=== PATIENT | female | born 1935 | race African-American/Black ===

== ENCOUNTER 2020-02-15 03:53 | Inpatient (IN) | payer OTHER ==
--- NOTE | 2020-02-15 04:30 | PDOC ---
History of Present Illness - General Chief Complaint: Shortness of Breath Stated Complaint: SOB Time Seen by Provider: 02/15/20 04:30 - History of Present Illness Initial Comments: 02/15/20 04:30 HPI: ROS: GENERAL/CONSTITUTIONAL: No fever/chills, diaphoresis, or weakness. HEENT: No change in vision. No ear pain. No sore throat. CARDIOVASCULAR: No chest pain, palpitations or peripheral edema RESPIRATORY: No shortness of breath, dyspnea with exertion, cough, wheezing, or hemoptysis. GASTROINTESTINAL: No abdominal pain, nausea, vomiting, diarrhea or constipation. GENITOURINARY: No dysuria, frequency, or change in urination. MUSCULOSKELETAL: No joint or muscle swelling or pain. SKIN: No rash or hives NEUROLOGIC: No headache, vertigo, focal weakness, loss of consciousness, or change in strength/sensation. ENDOCRINE: No increased thirst. No unexplained weight loss. HEMATOLOGIC/LYMPHATIC: No anemia, easy bleeding, or history of blood clots. PMH: Denied PSx: Denied Social Hx: Denied etoh, tobacco, drug use Meds: See nurse note Allergies: See nurse note PE: GENERAL: Awake, alert, and fully oriented, in no acute distress. Patient is appropriately conversational. HEENT: Normocephalic, atraumatic. PERRLA, EOMI. No conjunctival pallor. Moist mucous membranes. NECK: Normal ROM and supple. No lymphadenopathy, JVD, or masses. CARDIOVASCULAR: Regular rate and rhythm, normal S1 and S2, no murmurs, rubs or gallops PULMONARY: No respiratory distress. Breath sounds equal, clear to auscultation bilaterally. No wheezes, rales or rhonchi. ABDOMEN: Soft, nontender, normoactive bowel sounds. No guarding, no rebound. No masses EXTREMITIES: Normal range of motion, no edema or erythema, no calf tenderness. No clubbing or cyanosis. NEUROLOGICAL: Cranial nerves II through XII grossly intact. Normal speech, normal gait SKIN: Warm, Dry, normal turgor, no rashes or lesions noted. Normal capillary refill. PSYCHIATRIC: Appropriate affect. Cooperative MDM: Past History - Medical History Allergies/Adverse Reactions: Allergies Allergy/AdvReac Type Severity Reaction Status Date / Time No Known Allergies Allergy Verified 02/15/20 04:18 Cardiac Disorders: Yes (A-fib) COPD: No Diabetes: Yes HTN: Yes Other medical history: Hemiplegia s/p stroke (Left weakness) - Psycho-Social/Smoking History Smoking History: Never smoked Have you smoked in the past 12 months: No Information on smoking cessation initiated: No - Substance Abuse Hx (Audit-C & DAST Scrn) How often the patient has a drink containing alcohol: Never Score: In Men: 4 or > Positive; In Women: 3 or > Positive: 0 Screen Result (Pos requires Nsg. Audit-10AR): Negative In the last yr the pt used illegal drug/Rx for NonMed reason: No Score: Yes response is considered Positive: 0 Screen Result (Positive result requires Nsg. DAST-10): Negative *Physical Exam - Vital Signs Last Vital Signs Temp Pulse Resp BP Pulse Ox 98.1 F 99 H 20 139/121 H 99 02/15/20 04:18 02/15/20 04:18 02/15/20 04:18 02/15/20 04:18 02/15/20 04:18
--- NOTE | 2020-02-15 05:45 | PDOC ---
History of Present Illness - General Chief Complaint: Shortness of Breath Stated Complaint: SOB Time Seen by Provider: 02/15/20 04:30 History Source: Patient Exam Limitations: No Limitations - History of Present Illness Initial Comments: 02/15/20 04:41 85 yo female pmh CVA with residual left sided weakness, DM, HTN, Afib (on ASA, no AC), presents to the ED from [facility] after being found hypoxic to 87 and having an elevated RR and laboured breathing. Pt unable to provide history, poor historian, AOX2. 1st visit to this hospital. Pt has no specific complaints at this time. Denies CP, SOB, abdominal pain, F/C/N/V. Pt noted to be tachypnic with O2 in the low 90s, placed on NC 3L by EMS Past History - Medical History Allergies/Adverse Reactions: Allergies Allergy/AdvReac Type Severity Reaction Status Date / Time No Known Allergies Allergy Verified 02/15/20 04:18 Home Medications: Ambulatory Orders Aspirin [Justin Chewable] 81 mg PEG DAILY 02/15/20 Atorvastatin Ca [Lipitor] 40 mg PEG HS 02/15/20 Diltiazem [Cardizem -] 60 mg PEG QID 02/15/20 Diphenhydramine [Benadryl Oral Solution -] 25 mg PEG Q6H 02/15/20 Insulin Glargine,Hum.rec.anlog [Basaglar Kwikpen U-100] 10 unit SQ HS 02/15/20 Insulin Lispro [Admelog Solostar] 3 unit SQ AM 02/15/20 Multivitamin [Multiple Vitamins] 1 each PEG DAILY 02/15/20 Saliva Substitute Comb. No.12 [Oral Relief Dry Mouth] 30 ml MM Q6H PRN 02/15/20 Cardiac Disorders: Yes (A-fib) COPD: No Diabetes: Yes HTN: Yes Other medical history: Hemiplegia s/p stroke (Left weakness) - Psycho-Social/Smoking History Smoking History: Never smoked Have you smoked in the past 12 months: No Information on smoking cessation initiated: No - Substance Abuse Hx (Audit-C & DAST Scrn) How often the patient has a drink containing alcohol: Never Score: In Men: 4 or > Positive; In Women: 3 or > Positive: 0 Screen Result (Pos requires Nsg. Audit-10AR): Negative In the last yr the pt used illegal drug/Rx for NonMed reason: No Score: Yes response is considered Positive: 0 Screen Result (Positive result requires Nsg. DAST-10): Negative Review of Systems - Review of Systems Constitutional: Yes: See HPI HEENTM: Yes: See HPI Respiratory: Yes: See HPI Cardiac (ROS): Yes: See HPI ABD/GI: Yes: See HPI : Yes: See HPI Musculoskeletal: Yes: See HPI Integumentary: Yes: See HPI *Physical Exam - Vital Signs Last Vital Signs Temp Pulse Resp BP Pulse Ox 98.1 F 99 H 20 139/121 H 99 02/15/20 04:18 02/15/20 04:18 02/15/20 04:18 02/15/20 04:18 02/15/20 04:18 - Physical Exam General Appearance: Yes: Nourished, Appropriately Dressed, Apparent Distress HEENT: positive: EOMI, YUVAL Neck: positive: Supple Respiratory/Chest: positive: Lungs Clear, Normal Breath Sounds, Rapid RR. negative: Respiratory Distress, Accessory Muscle Use, Crackles, Rales, Rhonchi, Stridor, Wheezing Cardiovascular: positive: Regular Rhythm, S1, S2, Tachycardia. negative: Edema, JVD, Murmur Vascular Pulses: Dorsalis-Pedis (R): 4+, Doralis-Pedis (L): 4+ Gastrointestinal/Abdominal: positive: Flat, Soft. negative: Pulsatile Mass, Protuberent, Distended, Guarding, Rebound, Tenderness Musculoskeletal: negative: CVA Tenderness Extremity: positive: Normal Capillary Refill, Normal Inspection, Normal Range of Motion Integumentary: positive: Normal Color, Dry, Warm Neurologic: positive: Alert, Normal Mood/Affect, Normal Response, Motor Strength 5/5. negative: Fully Oriented ED Treatment Course - LABORATORY CBC & Chemistry Diagram: 02/15/20 05:00 02/15/20 05:34 - RADIOLOGY Radiology Studies Ordered: Category Date Time Status CHEST X-RAY PORTABLE* [RAD] Stat Radiology 02/15/20 04:36 Ordered Medical Decision Making - Medical Decision Making 02/15/20 06:41 85 yo female pmh CVA with residual left sided weakness, DM, HTN, Afib (on ASA, no AC), presents to the ED from [facility] after being found hypoxic to 87 and having an elevated RR and laboured breathing. Pt unable to provide history, poor historian, AOX2. 1st visit to this hospital. Pt has no specific complaints at this time. Denies CP, SOB, abdominal pain, F/C/N/V. Pt noted to be tachypnic with O2 in the low 90s, placed on NC 3L by EMS Vitals show elevated HR, Afib on EKG, 97% on 02 Concern for sepsis vs PE Pending labs, CXR UA, CTA and admission for laboured breathing and newly requiring 02 Donald Urrutia contact number [phone] 02/15/20 07:07 S/O to day team Discharge - Discharge Information Problems reviewed: Yes Clinical Impression/Diagnosis: Hypoxic - Follow up/Referral Referrals: ON STAFF,NOT [Primary Care Provider] - - Patient Discharge Instructions - Post Discharge Activity
[2020-02-15 05:47] LABS: BASO % 0.4 % (0-2.0); EOS % 1.7 % (0-4.5); HEMOGLOBIN 11.2 GM/dL (10.7-15.3); LYMPH % 16.4 % (8-40); MCH 30.9 pg (25.7-33.7); MEAN CELL VOLUME 96.8 fl (80-96); MEAN PLT VOLUME 9.5 fl (7.5-11.1); MONO % 8.8 % (3.8-10.2); NEUT % 72.7 % (42.8-82.8); PLATELET COUNT 269 K/MM3 (134-434); RBC 3.62 M/mm3 (3.60-5.2); RDW 16.4 % (11.6-15.6); WHITE BLOOD COUNT 14.5 K/mm3 (4.0-10.0)
[2020-02-15 05:51] LABS: INR 1.13 (0.83-1.09); PROTHROMBIN TIME (PATIENT) 13.6 SEC (9.7-13.0)
[2020-02-15 05:54] LABS: ACTIVATED PTT 26.5 SECONDS (25.2-36.5)
--- NOTE | 2020-02-15 05:56 | PDOC ---
Attending Attestation - Resident Resident Name: Hank Guallpa - ED Attending Attestation I have performed the following: I have examined & evaluated the patient, The case was reviewed & discussed with the resident, I agree w/resident's findings & plan, Exceptions are as noted - HPI HPI: 02/21/20 20:21 See resident HPI - Physicial Exam PE: 02/21/20 20:21 Agree with documented exam - Medical Decision Making 02/21/20 20:21 85F DM, HTN, AFib on ASA, CVA L residual weakness from NH found acutely hypoxic to 87% on RA, tachypneic, increased wob given presentation, PE is of primary concern, consider infection, arrythmia, fluid derangement f/u labs, cxr, ekg, cta pe final dispo per clinical course, but will need admission Discharge - Discharge Information Problems reviewed: Yes Clinical Impression/Diagnosis: Hypoxic, New onset of congestive heart failure Pulmonary embolus Qualifiers: Pulmonary embolism type: single subsegmental (without acute cor pulmonale) Qualified Code(s): I26.93 - Single subsegmental pulmonary embolism without acute cor pulmonale Condition: Stable - Follow up/Referral - Patient Discharge Instructions - Post Discharge Activity
[2020-02-15 06:10] LABS: POTASSIUM 3.9 mmol/L (3.5-5.1)
[2020-02-15 06:11] LABS: CALCIUM 9.2 mg/dL (8.5-10.1)
[2020-02-15 06:13] LABS: BLOOD UREA NITROGEN 31.4 mg/dL (7-18)
[2020-02-15 06:16] LABS: CREATININE 1.1 mg/dL (0.55-1.3)
[2020-02-15 06:18] LABS: BILIRUBIN,TOTAL 0.5 mg/dL (0.2-1); TOT PROT 6.6 g/dl (6.4-8.2)
--- NOTE | 2020-02-15 07:38 | PDOC ---
*Physical Exam - Vital Signs Last Vital Signs Temp Pulse Resp BP Pulse Ox 98.8 F 99 H 18 127/86 99 02/15/20 06:00 02/15/20 06:00 02/15/20 06:00 02/15/20 06:00 02/15/20 07:30 ED Treatment Course - LABORATORY CBC & Chemistry Diagram: 02/15/20 05:00 02/15/20 05:34 - ADDITIONAL ORDERS Additional order review: Laboratory Results 02/15/20 02/15/20 02/15/20 05:34 05:00 05:00 PT with INR INR PTT (Actin FS) Sodium 140 Potassium 3.9 Chloride 102 Carbon Dioxide 29 Anion Gap 10 BUN 31.4 H Creatinine 1.1 Est GFR (CKD-EPI)AfAm 53.39 Est GFR (CKD-EPI)NonAf 46.07 Random Glucose 143 H Lactic Acid 1.9 Calcium 9.2 Total Bilirubin 0.5 AST 34 ALT 47 Alkaline Phosphatase 283 H Troponin I 0.06 H Total Protein 6.6 Albumin 3.0 L 02/15/20 05:00 PT with INR 13.60 H INR 1.13 H PTT (Actin FS) 26.5 Sodium Potassium Chloride Carbon Dioxide Anion Gap BUN Creatinine Est GFR (CKD-EPI)AfAm Est GFR (CKD-EPI)NonAf Random Glucose Lactic Acid Calcium Total Bilirubin AST ALT Alkaline Phosphatase Troponin I Total Protein Albumin 02/15/20 05:00 RBC 3.62 MCV 96.8 H MCHC 32.0 RDW 16.4 H MPV 9.5 Neutrophils % 72.7 Lymphocytes % 16.4 Monocytes % 8.8 Eosinophils % 1.7 Basophils % 0.4 Medical Decision Making - Medical Decision Making 02/15/20 07:[address] Guallpa. Plan to follow up CTA to rule out P, admit. EKG atrial fibrillation at 99 bpm, QTc 426. Trop noted to be 0.06. 02/15/20 07:39 CXR with bilateral pleural effusions with congestive changes, possible basilar atelectasis or infiltrates with the left more affected than the right. There is a large heart, sclerotic knob, sternal sutures and clips, scoliosis and degenerative spine and shoulder changes. 02/15/20 08:12 pro-BNP >14,000, consistent with new onset CHF. Will f/u chest CTA. 02/15/20 09:34 Chest CTA: Filling defect within the right lower lobe segmental pulmonary artery that appears to be caused by a pulmonary embolus. Will admit for PE, new onset CHF. 02/15/20 14:34 Called to bedside due to concern for increasing altered mental status, left sided facial droop. Patient was previously AAOX2 and answered questions appropriately, now saying words without relevance. CT stroke ordered, will get NIHSS after patient returns. 02/15/20 15:[address] being read, but radiologist notes concern for acute hemorrhagic stroke vs subarachnoid. Heparin stopped. Dr. Jack aware. 02/15/20 15:26 CT (stroke): Early or intravenous contrast administration is limiting this exam. There is suggestion of a superimposed acute/subacute right middle cerebral artery infarct with edema and efface of the cortical sulci. Cortical versus sulcal increased attenuation along the lateral margin of the right frontal, temporal, and parietal lobe. Although this may be due to cortical reperfusion and late enhancement from the earlier administered intravenous contrast, significant subarachnoid hemorrhage should definitely be considered. Correlated clinically. Neurosurgery consult is recommended. A short term follow-up CT of the head in 6 to 12 hours or an MRI of the brain is needed for further evaluation. 02/15/20 15:[address] Abdi from neurology, who also expresses concern for brain bleed, recommends discussion with neurosurgery. Discussed with Dr. Murphy from neurosurgery, who says there is no surgical intervention to be performed, manage medically. Dr. Jack is at bedside, plan to admit patient to the ICU. Discharge - Discharge Information Problems reviewed: Yes Clinical Impression/Diagnosis: Hypoxic, New onset of congestive heart failure Pulmonary embolus Qualifiers: Pulmonary embolism type: single subsegmental (without acute cor pulmonale) Qualified Code(s): I26.93 - Single subsegmental pulmonary embolism without acute cor pulmonale Condition: Guarded - Admission Yes - Follow up/Referral - Patient Discharge Instructions - Post Discharge Activity NIH Stroke Scale - Last Known Well Date/Time & Onset Date Last Known Well: 02/15/20 Time Last Known Well: 14:30 - Initial Evaluation Level of consciousness: Not alert, but arousable with minimal stimulation Ask patient the month and their age: Answers one correctly Ask patient to open & close eyes; make fist and let go: Obeys both correctly Best gaze (horizontal eye movement): Partial gaze palsy Visual field testing: No visual field loss Facial paresis (Show teeth/raise eyebrows/close eyes tight): Minor paralysis (flattened nasolabial fold, asymmetry on smiling) Motor Function: Left Arm: No movement Motor Function: Right Arm: Normal (extends arm 90 (or 45) degrees for 10 seconds without drift Motor Function: Left Leg: No movement Motor Function: Right Leg: Normal (extends leg 30 degrees for 5 seconds without drift) Limb Ataxia: Untestable (Joint fused or limb amputated), explain: (Not moving left side. R side without ataxia) Sensory(Use pinprick test arms,legs,trunk,face/side to side): Severe to total sensory loss (L sided) Best language (Describe picture, name items, read sentences): Mild to moderate aphasia Dysarthria (read several words): Normal articulation Extinction and Inattention: Profound dawson-inattention or extinction to more than one modality (L sided dawson-neglect) - Total Score NIH Stroke Scale Score: 17
[2020-02-15 08:04] LABS: N-TERMINAL BNP 14356.1 pg/ml (5-450)
[2020-02-15 08:11] LABS: URINE APPEARANCE CLEAR; URINE BILIRUBIN NEGATIVE (NEGATIVE); URINE COLOR YELLOW; URINE GLUCOSE (UA) NEGATIVE (NEGATIVE); URINE KETONE NEGATIVE (NEGATIVE); URINE LEUK ESTERASE NEGATIVE (NEGATIVE); URINE NITRITE NEGATIVE (NEGATIVE); URINE PROTEIN NEGATIVE (NEGATIVE); URINE UROBILINOGEN 0.2 mg/dL (0.2-1.0)
[2020-02-15] MEDS ORDERED: FUROSEMIDE 40 MG/4 ML INJECTABLE VIAL IVPUSH ONE (08:12)
[2020-02-15] MEDS ORDERED: HEPARIN NA (PORCINE) 5,000 UNITS/ML 1ML VIAL IVPUSH ONE (09:37)
[2020-02-15] MEDS ORDERED: HEPARIN NA (PORCINE) 5,000 UNITS/ML 1ML VIAL IVPUSH PRN ×2 (09:38)
[2020-02-15] MEDS ORDERED: HEPARIN NA (PORCINE) 5,000 UNITS/ML 1ML VIAL ONE ×2 (09:42→11:31)
[2020-02-15] MEDS ORDERED: FUROSEMIDE 40 MG/4 ML INJECTABLE VIAL ONE (09:43)
[2020-02-15] MEDS ORDERED: HEPARIN INFUSION - 25,000 UNITS/500 ML INFUS.BAG IVPB ONE (09:43)
[2020-02-15] MEDS ORDERED: HEPARIN - 25,000 UNIT in SODIUM CHLORIDE 495 ML IV SCH (09:45)
--- NOTE | 2020-02-15 11:36 | CON.CARD ---
Consult Consult Specialty:: Cardiology Referred by:: Dr. Jack Reason for Consultation:: CHF - History of Present Illness Chief Complaint: sob History of Present Illness: 85 year old woman with pmh HTN, DM, Afib only on ASA not AC unknown indication, h/o CVA with residual L sided weakness adm from [place] sob, hypoxic. pt found to have a pulmonary embolism on CTA chest as well as b/l pleural effusions. pt seen and examined today in [facility]. pt unable to provide a clear history. denies any current complaints. states she needs to go to the bathroom. denies any current sob. no chest pain, palpitations, pnd, orthopnea, or le edema. 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 Cardio/Vascular: Yes: AFIB, HTN Endocrine: Yes: Diabetes Mellitus - Smoking History Smoking history: Never smoked Have you smoked in the past 12 months: No - Social History Usual Living Arrangement: Retirement History of Recent Travel: No Home Medications - Allergies Allergies/Adverse Reactions: Allergies Allergy/AdvReac Type Severity Reaction Status Date / Time No Known Allergies Allergy Verified 02/15/20 04:18 - Home Medications Home Medications: Ambulatory Orders Acetaminophen [Tylenol -] 1,000 mg PEG TID PRN 02/15/20 Aspirin [Justin Chewable] 81 mg PEG DAILY 02/15/20 Atorvastatin Ca [Lipitor] 40 mg PEG HS 02/15/20 Diltiazem [Cardizem -] 60 mg PEG QID 02/15/20 Diphenhydramine [Benadryl Oral Solution -] 25 mg PEG Q6H 02/15/20 Furosemide 40 mg PEG BID PRN 02/15/20 Gabapentin 100 mg PEG HS 02/15/20 Insulin Glargine,Hum.rec.anlog [Basaglar Kwikpen U-100] 10 unit SQ HS 02/15/20 Insulin Lispro [Admelog Solostar] 3 unit SQ AM 02/15/20 Ipratropium 0.02% Nebulizer [Atrovent] 1 neb NEB Q6H PRN 02/15/20 Latanoprost 0.005% Eye Drops [Xalatan 0.005% Eye Drops -] 1 drop OU HS 02/15/20 Lisinopril 10 mg PEG DAILY 02/15/20 Meclizine HCl 12.5 mg PEG BID PRN 02/15/20 Metoprolol Tartrate 100 mg PEG BID 02/15/20 Multivitamin [Multiple Vitamins] 1 each PEG DAILY 02/15/20 Polyethylene Glycol 3350 [Glycolax] 17 gm PEG BID PRN 02/15/20 Saliva Substitute Comb. No.12 [Oral Relief Dry Mouth] 30 ml MM Q6H PRN 02/15/20 Sennosides 8.6 mg PEG HS PRN 02/15/20 predniSONE [Deltasone -] 40 mg PEG DAILY PRN 02/15/20 Family Medical History Family History: Denies Review of Systems - Review of Systems Constitutional: denies: No Symptoms, Chills, Diaphoresis, Fever, Lethargy, Loss of Appetite, Malaise, Night Sweats, Unintentional Wgt. Loss, Weakness, Other Eyes: denies: No Symptoms, Blind Spots, Blurred Vision, Double Vision, Eye Pain, Floaters, Photophobia, Recent Change in Vision, Other HENT: denies: No Symptoms, Difficult Swallowing, Ear Discharge, Ear Pain, Epistaxis, Gingival Bleeding, Hearing Loss, Mouth Swelling, Nasal Congestion, Ocular Prosthesis, Throat Pain, Toothache, Ringing in Ears, Other Neck: denies: No Symptoms, Decreased ROM, Lumps, Pain on Movement, Stiffness, Swollen Glands, Tenderness, Other Cardiovascular: reports: Shortness of Breath. denies: No Symptoms, Chest Pain, Edema, Palpitations, Other Respiratory: reports: SOB. denies: No Symptoms, Cough, Exercise Intolerance, He moptysis, Orthopnea, PND, Snoring, SOB on Exertion, Wheezing, Other Gastrointestinal: denies: No Symptoms, Abdominal Pain, Bloating, Constipation, Diarrhea, Dysphagia, Indigestion, Melena, Nausea, Rectal Bleeding, Vomiting, Vomiting Blood, Other Genitourinary: denies: No Symptoms, Burning, Discharge, Dysuria, Flank Pain, Frequency, Hematuria, Incontinence, Lesions, Menses, Pain, Testicular Mass, Testicular Pain, Testicular Swelling, Urgency, Vaginal Bleeding, Other Breasts: denies: No Symptoms Reported, See HPI, Breast Implants, Discharge from Nipple, Lumps, Pain, Skin Changes, Other Musculoskeletal: denies: No Symptoms, Back Pain, Crepitus, Decreased ROM, Extremity Pain, Joint Pain, Joint Swelling, Muscle Pain, Muscle Cramps, Muscle Weakness, Other Integumentary: denies: No Symptoms, Blister, Bruising, Change in Color, Eczema, Erythema, Incision, Lesions, Lump, Pallor, Pruritis, Rash, Wound, Other Neurological: reports: Pre-Existing Deficit. denies: No Symptoms, Change in LOC, Change in Speech, Confusion, Dizziness, Headache, Incoordination, Numbness, Parasthesia, Seizure, Syncope, Tremors, Unsteady Gait, Weakness, Other Endocrine: denies: No Symptoms, Excessive Sweating, Flushing, Increased Hunger, Increased Thirst, Intolerance to Cold, Intolerance to Heat, Unexplained Weight Gain, Unexplained Weight Loss, Other Hematology/Lymphatic: denies: No Symptoms, Easily Bruised, Excessive Bleeding, Swollen Glands, Other Psychiatric: denies: No Symptoms, Altered Sleep Pattern, Anxiety, Depression, Hallucinations, Panic, Paranoia, Suicidal, Other - Risk Factors Known Risk Factors: Yes: Diabetes Mellitus, Hypercholesterolemia, Hypertension, Physical Inactivity, Prior ME /Emb Stroke Vital Signs: Vital Signs Temperature 98.2 F 02/15/20 10:13 Pulse Rate 109 H 02/15/20 10:13 Respiratory Rate 19 02/15/20 10:13 Blood Pressure 124/81 02/15/20 10:13 O2 Sat by Pulse Oximetry (%) 99 02/15/20 10:13 Constitutional: Yes: No Distress, Calm Eyes: Yes: Conjunctiva Clear, EOM Intact HENT: Yes: Atraumatic, Normocephalic Neck: Yes: Supple, Trachea Midline Respiratory: Yes: Regular, Diminished. No: Rales, Rhonchi, SOB, Wheezes Gastrointestinal: Yes: Normal Bowel Sounds, Soft. No: Distention, Tenderness Cardiovascular: Yes: Pulse Irregular. No: Regular Rate and Rhythm, Bradycardia, Tachycardia, Gallop, Rub, Varicosities JVD: No Carotid Bruit: No PMI: Non-Displaced Heart Sounds: Yes: S1, S2. No: Split S2, S3, S4, Clicks, Gallop, Rub, Bruit Murmur: No: Systolic Murmur, Diastolic Murmur Edema: No Peripheral Pulses WNL: Yes Peripheral Pulses: 2+ Left Doralis Pedis, 2+ Right Dorsalis Pedis Neurological: Yes: Alert, Oriented Psychiatric: Yes: Alert, Oriented - Other Data Labs, Other Data: CBC, BMP 02/15/20 05:00 02/15/20 05:34 INR, PTT INR 1.13 (0.83-1.09) H 02/15/20 05:00 Troponin, BNP 02/15/20 02/15/20 05:00 05:34 Troponin I 0.06 H B-Natriuretic Peptide 43718.1 H Troponin, BNP 02/15/20 02/15/20 05:00 05:34 Troponin I 0.06 H B-Natriuretic Peptide 45294.1 H Afib Imaging - Results Chest X-ray: Report Reviewed, Image Reviewed EKG: Report Reviewed, Image Reviewed Other: Report Reviewed, Image Reviewed Assessment/Plan 85 year old woman with pmh HTN, DM, Afib only on ASA not AC unknown indication, h/o CVA with residual L sided weakness adm from [place] sob, hypoxic. pt found to have a pulmonary embolism on CTA chest as well as b/l pleural effusions. pt seen and examined today in [facility]. pt unable to provide a clear history. denies any current complaints. states she needs to go to the bathroom. denies any current sob. no chest pain, palpitations, pnd, orthopnea, or le edema. SOB -no evidence of CHF or ACS -Pulmonary embolism seen on CTA chest -b/l pleural effusions -elevated BNP and minimally elevated troponin on labs can be secondary to PE as well as to chronic Afib -pt reported to have not been on AC for AFib as outpatient, should be clarified as she will be on AC for pulmonary embolism -can check echo to evaluate for RV strain Afib -unknown details -reportedly not on AC as outpatient, only ASA, should be clarified -she is currently on heparin gtt for PE -HR is adequately controlled for now -can resume outpatient diltiazem
[2020-02-15] MEDS ORDERED: MECLIZINE HCL 12.5 MG TABLET PEG PRN (13:43)
[2020-02-15] MEDS ORDERED: [UNRECOGNIZED DRUG - REMARK] MM PRN ×2 (13:43→16:17)
[2020-02-15] MEDS ORDERED: IPRATROPIUM BR 0.02% 0.5 MG/2.5 ML VIAL.NEB. NEB PRN (13:43)
[2020-02-15] MEDS ORDERED: FUROSEMIDE 40 MG TABLET (FP) PEG PRN ×2 (13:43→13:59)
[2020-02-15] MEDS ORDERED: ACETAMINOPHEN 500 MG TABLET (FP) PEG PRN ×2 (13:43→16:17)
[2020-02-15] MEDS ORDERED: dilTIAZem HCL 60 MG TABLET ONE (14:21)
--- NOTE | 2020-02-15 14:29 | ECHO ---
Version: 1 Name: MARCIANO SOTO Exam: Adult Echocardiogram Study Date: 02/15/2020, 1:08 PM Age: 85 Years MMode/2D Measurements & Calculations IVSd: 0.87 cm LVIDs: 2.8 cm LVIDd: 3.5 cm LVPWd: 1.10 cm LVOT diam: 1.83 cm Ao root diam: 2.7 cm LA dimension: 3.3 cm Doppler Measurements & Calculations Lat Peak E' Edmond: 6.8 cm/sec Med Peak E' Edmond: 7.8 cm/sec MR max P.0 mmHg Ao max P.2 mmHg Ao V2 max: 138.0 cm/sec PI end-d edmond: 199.5 cm/sec TR max edmond: 314.9 cm/sec TR max P.9 mmHg Left Ventricle Left ventricular systolic function is grossly normal. Ejection Fraction = 55-60%. Right Ventricle The right ventricle is mildly dilated. The right ventricular systolic function is grossly normal. Atria The left atrium is mildly dilated. Right atrial size is normal. Mitral Valve There is mild to moderate mitral annular calcification. There is no mitral valve stenosis. There is mild mitral regurgitation. Tricuspid Valve The tricuspid valve is normal in structure and function. There is moderate tricuspid regurgitation. Right ventricular systolic pressure is elevated at 30-40mmHg. Aortic Valve There is mild aortic sclerosis.;. No hemodynamically significant valvular aortic stenosis. Trace aor tic regurgitation. Pulmonic Valve The pulmonic valve is not well seen, but is grossly normal. There is no pulmonic valvular stenosis. Trace to mild pulmonic valvular regurgitation. Great Vessels The aortic root is normal size. Pericardium/Pleura There is no pericardial effusion. Tech Comments pt refused to complete the whole study. Summary Statements Ejection Fraction = 55-60%. The right ventricle is mildly dilated. The left atrium is mildly dilated. There is mild mitral regurgitation. There is mild to moderate mitral annular calcification. Right ventricular systolic pressure is elevated at 30-40mmHg. There is moderate tricuspid regurgitation. There is mild aortic sclerosis.; There is no pericardial effusion. MD Jones *Asifone 02/15/2020, 2:29 PM Ordering Physician: Jeffrey Bazzi Referring Physician: JEFFREY BAZZI Performed By: Merline Marti
--- NOTE | 2020-02-15 14:39 | PDOC ---
*Physical Exam - Vital Signs Last Vital Signs Temp Pulse Resp BP Pulse Ox 97.8 F 110 H 20 127/59 L 99 02/15/20 12:05 02/15/20 12:59 02/15/20 12:59 02/15/20 12:59 02/15/20 12:59 ED Treatment Course - LABORATORY CBC & Chemistry Diagram: 02/19/20 05:58 02/19/20 05:58 - ADDITIONAL ORDERS Additional order review: Laboratory Results 02/15/20 02/15/20 02/15/20 08:04 06:00 05:34 PT with INR INR PTT (Actin FS) Sodium 140 Potassium 3.9 Chloride 102 Carbon Dioxide 29 Anion Gap 10 BUN 31.4 H Creatinine 1.1 Est GFR (CKD-EPI)AfAm 53.39 Est GFR (CKD-EPI)NonAf 46.07 Random Glucose 143 H Lactic Acid 2.0 Calcium 9.2 Total Bilirubin 0.5 AST 34 ALT 47 Alkaline Phosphatase 283 H Troponin I B-Natriuretic Peptide 58254.1 H Total Protein 6.6 Albumin 3.0 L Urine Color Yellow Urine Appearance Clear Urine pH 7.0 Ur Specific [place] 1.009 L Urine Protein Negative Urine Glucose (UA) Negative Urine Ketones Negative Urine Blood Negative Urine Nitrite Negative Urine Bilirubin Negative Urine Urobilinogen 0.2 Ur Leukocyte Esterase Negative 02/15/20 02/15/20 02/15/20 05:00 05:00 05:00 PT with INR 13.60 H INR 1.13 H PTT (Actin FS) 26.5 Sodium Potassium Chloride Carbon Dioxide Anion Gap BUN Creatinine Est GFR (CKD-EPI)AfAm Est GFR (CKD-EPI)NonAf Random Glucose Lactic Acid 1.9 Calcium Total Bilirubin AST ALT Alkaline Phosphatase Troponin I 0.06 H B-Natriuretic Peptide Total Protein Albumin Urine Color Urine Appearance Urine pH Ur Specific [place] Urine Protein Urine Glucose (UA) Urine Ketones Urine Blood Urine Nitrite Urine Bilirubin Urine Urobilinogen Ur Leukocyte Esterase 02/15/20 05:00 RBC 3.62 MCV 96.8 H MCHC 32.0 RDW 16.4 H MPV 9.5 Neutrophils % 72.7 Lymphocytes % 16.4 Monocytes % 8.8 Eosinophils % 1.7 Basophils % 0.4 - Medications Given in the ED: ED Medications Discontinued Medications Generic Name Dose Route Start Last Admin Trade Name Freq PRN Reason Stop Dose Admin Furosemide 40 mg 02/15/20 08:12 02/15/20 09:46 Lasix Injection - IVPUSH 02/15/20 08:13 40 mg ONCE ONE Administration Heparin Sodium (Porcine) 5,800 unit 02/15/20 09:37 02/15/20 11:35 Heparin - 80 unit/kg (5800 unit) 02/15/20 09:38 5,800 unit IVPUSH Administration ONCE ONE Medical Decision Making - Medical Decision Making 02/15/20 14:40 85y F hx of CVA with residual L sided weakness (approx 6 weeks prior), dm, htn, afib on asa (not on ac) presents with hypoxia/sob by NH, was found to have a PE on CTA and started on heparin. The pt was admitted to PMDs service. Pt had gone to Cardiology and when pt came back, was noted to have AMS/speech difficulty/heminecglect of L side. I was called to the bedside, she was unable to respond to my questions and seems confused, also noted to have hemineglect of the L side and was not moving her L arm (she does have a chronic deficit, unclear to exact strength). Per nursing, the pt was answering questions and responsive prior to going to cardiology. Naylei Ortiz was activated at approx 2:3 5pm and pt was rushe dto CT to r/o CVA was hemorrage. Dr. menchaca was notified by RN. 02/15/20 15:[address] noted for possible blood vs residual contrast, hwever with neuro findings (neglect), highly suspicious of hmorrhagic stroke. heparin was stopped. pt clinical status improved curently, she is verbal, answering questions, denies any headache, n/v. she does have persistent hemineglect. [facility] bedside, updated to pts condition dr. Menchaca is bedside evaluating the patient.. Discharge - Discharge Information Problems reviewed: Yes Clinical Impression/Diagnosis: Hypoxic, New onset of congestive heart failure Pulmonary embolus Qualifiers: Pulmonary embolism type: single subsegmental (without acute cor pulmonale) Qualified Code(s): I26.93 - Single subsegmental pulmonary embolism without acute cor pulmonale Condition: Guarded - Follow up/Referral - Patient Discharge Instructions - Post Discharge Activity
[2020-02-15] MEDS ORDERED: METOPROLOL TARTRATE 5 MG/5 ML VIAL IVPUSH PRN (16:22)
[2020-02-15] MEDS ORDERED: INSULIN SLIDING SCALE (NOVOLOG) 1 VIAL SQ SCH (16:30)
[2020-02-15] MEDS: dilTIAZem HCL 60 MG TABLET PEG SCH (17:01)
[2020-02-15] MEDS: INSULIN SLIDING SCALE (NOVOLOG) 1 VIAL SQ SCH (17:18)
--- NOTE | 2020-02-15 17:21 | HP ---
Admitting History and Physical - Admission History of Present Illness: 85 year old woman with pmh HTN, DM, Afib only on ASA not AC unknown indication, h/o CVA with residual L sided weakness adm from OR sob, hypoxic. pt found to have a pulmonary embolism on CTA chest as well as b/l pleural effusions. 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 Cardiovascular: Yes: AFIB, HTN Endocrine: Yes: Diabetes Mellitus - Smoking History Smoking history: Never smoked Have you smoked in the past 12 months: No - Social History History of Recent Travel: No Home Medications - Allergies Allergies/Adverse Reactions: Allergies Allergy/AdvReac Type Severity Reaction Status Date / Time No Known Allergies Allergy Verified 02/15/20 04:18 - Home Medications Home Medications: Ambulatory Orders Acetaminophen [Tylenol -] 1,000 mg PEG TID PRN 02/15/20 Aspirin [Justin Chewable] 81 mg PEG DAILY 02/15/20 Atorvastatin Ca [Lipitor] 40 mg PEG HS 02/15/20 Diltiazem [Cardizem -] 60 mg PEG QID 02/15/20 Diphenhydramine [Benadryl Oral Solution -] 25 mg PEG Q6H 02/15/20 Furosemide 40 mg PEG BID PRN 02/15/20 Gabapentin 100 mg PEG HS 02/15/20 Insulin Glargine,Hum.rec.anlog [Basaglar Kwikpen U-100] 10 unit SQ HS 02/15/20 Insulin Lispro [Admelog Solostar] 3 unit SQ AM 02/15/20 Ipratropium 0.02% Nebulizer [Atrovent] 1 neb NEB Q6H PRN 02/15/20 Latanoprost 0.005% Eye Drops [Xalatan 0.005% Eye Drops -] 1 drop OU HS 02/15/20 Lisinopril 10 mg PEG DAILY 02/15/20 Meclizine HCl 12.5 mg PEG BID PRN 20 Metoprolol Tartrate 100 mg PEG BID 02/15/20 Multivitamin [Multiple Vitamins] 1 each PEG DAILY 02/15/20 Polyethylene Glycol 3350 [Glycolax] 17 gm PEG BID PRN 02/15/20 Saliva Substitute Comb. No.12 [Oral Relief Dry Mouth] 30 ml MM Q6H PRN 02/15/20 Sennosides 8.6 mg PEG HS PRN 02/15/20 predniSONE [Deltasone -] 40 mg PEG DAILY PRN 02/15/20 Family Medical History Family History: Denies Review of Systems - Review of Systems Cardiovascular: reports: Chest Pain Respiratory: reports: SOB Neurological: reports: Pre-Existing Deficit. denies: Headache Physical Examination Vital Signs: Vital Signs Temperature 98.0 F 02/15/20 14:35 Pulse Rate 142 H 02/15/20 17:11 Respiratory Rate 21 H 02/15/20 15:00 Blood Pressure 124/73 02/15/20 17:11 O2 Sat by Pulse Oximetry (%) 99 02/15/20 15:00 Cardiovascular: Yes: S1, S2 Respiratory: Yes: Regular, CTA Bilaterally Gastrointestinal: Yes: Normal Bowel Sounds, Soft. No: Tenderness Edema: No Labs: CBC, BMP 02/15/20 05:00 02/15/20 05:34 Problem List - Problems (1) Afib Assessment/Plan: cardio consult ac on hold due to possibility of bleed Code(s): I48.91 - UNSPECIFIED ATRIAL FIBRILLATION (2) Subdural hematoma Assessment/Plan: follow up ct icu care neurosurgical consult Code(s): S06.5X9A - TRAUM SUBDR HEM W LOC OF UNSP DURATION, INIT (3) CVA (cerebral vascular accident) Assessment/Plan: old--r/o new cva event monitor Code(s): I63.9 - CEREBRAL INFARCTION, UNSPECIFIED (4) Hypoxic Assessment/Plan: oxygen and monitor Code(s): R09.02 - HYPOXEMIA (5) Pulmonary embolus Assessment/Plan: dc heparin due to sdh await neuro opinion Code(s): I26.99 - OTHER PULMONARY EMBOLISM WITHOUT ACUTE COR PULMONALE Qualifiers: Pulmonary embolism type: single subsegmental (without acute cor pulmonale) Qualified Code(s): I26.93 - Single subsegmental pulmonary embolism without acute cor pulmonale
[2020-02-15] MEDS ORDERED: dilTIAZem HCL 60 MG TABLET PEG SCH (18:00)
--- NOTE | 2020-02-15 19:14 | PN ---
Progress Note (short form) - Note Progress Note: NEUROSURGERY H/o HTN, DM, Afib, h/o CVA with residual L hemiparesis from [facility] NH was admitted for dyspnea and hypoxia. + pulmonary embolism on CTA chest as well as B pleural effusions. Denies H/A, N/V, sz. Stated she was at [facility] a couple weeks ago with her stroke PE: T 98, BP124/73, MT 120's, O2 sat 100% on 2L O2 Speech slow but comprehensible, oriented x2, memory mildly impaired HEENT- NC/AT; Cor- Irreg; Lungs- decreased at bases B; Abd- benign; Ext- no clear sign of DVT CN- L lower facial droop, tongue to R; Motor- dense L hemiparesis; Sensory- grossly intact LT; DTR- 1+, L toe upgoing WBC 14.5, INR 1.13; Cr 1.1, BUN 31.[address]- multifocal R hemispheric (frontal, temporal, parietal >> occipital) cortical/subcortical gyriform hyperdensity with effacement of sulci. white matter hypodensity (centrum-semiovale) R > L. Moderate atrophy with moderate ventriculomegaly, no midline shift; earlier contrast during the day could have interfered with this non-contrast study's appearance Chest CT- RLL segmental PE, pleural effusion B Mot likely subacute-chronic R hemispheric infarct with cortical-subcortical gyriform hyperdensity (reperfusion related hyperdensity), though underlying acute infarct cannot be ruled out Hyperdensity unlikely acute bleed since pt would not be doing as well as she is with this amount of acute blood R/o Covid given presence of multi-system thromboembolism (recent prior CVA and RLL PE) MRI would most ideal to r/o acute ischemia if feasible If MRI cannot be safely performed, should repeat head CT this evening/tomorrow morning to assess pattern of hyperdensity Obtain prior head CT (prior acute care institution) images and report if possible for radiology comparison to determine new findings vs evolution of recent past pathology No neurosurgical intervention indicated regardless as this is more a neurology stroke management issue Given multi-system thromboembolism in an elderly patient with significant medical co-morbidities, prognosis is poor
--- NOTE | 2020-02-15 20:37 | CONSULT ---
Consultation: REQUESTING PROVIDER: CONSULT REQUEST: We have been asked to medically evaluate this patient for possible hemorrhagic stroke that prompted closer HD monitoring. HISTORY OF PRESENT ILLNESS: 85F w/ pmh of HFpEF, multi-vessel CAD + CABG, GERD, HLD, HTN, pAF(was on warafarin but stopped years prior), recent CVA(~6weeks prior at [facility], with residual Left-sided droop, LUE, LLE weakness; sp mechanical thrombectomy); brought in from [facility] due to concern of labored breathing with desaturation to 87% on RA then tachycardia to 130s. In the ED pt was in Afib with HR to 140s. CTA was perfomred which revealed RLL segmental pulmonary embolism. Heparin gtt was initiated. Approximately 5hs later, pt had AMS with "Left-sided facial droop" and "saying words without relevaance". A CTH was done which showed possible SAH; possibly due to cortical reperfusion and late enchancement form the earlier administered intravenous contrast. Pt was upgraded from a Tele admission to an ICU admission for closer monitoring. When asked about the reason for her hospitalization, the patient states that she doesn't know. Has no specific complaints. Pt's daughter, at bedside, states that the mother appears the best she has been since her [place] hospitalization. Endorses that Left-sided facial droops, speech stuttering, Left arm weakness, Left leg weakness has been present since the stroke 6weeks prior REVIEW OF SYSTEMS: CONSTITUTIONAL: Absent: fever, chills, diaphoresis, generalized weakness, malaise, loss of appetite, weight change HEENT: trouble seeing, states "looks like specks" Absent: rhinorrhea, nasal congestion, throat pain, throat swelling, difficulty swallowing, mouth swelling, ear pain, eye pain, visual changes CARDIOVASCULAR: Absent: chest pain, syncope, palpitations, irregular heart rate, lightheadedness, peripheral edema RESPIRATORY: Absent: cough, shortness of breath, dyspnea with exertion, orthopnea, wheezing, stridor, hemoptysis GASTROINTESTINAL: Absent: abdominal pain, abdominal distension, nausea, vomiting, diarrhea, constipation, melena, hematochezia GENITOURINARY: Absent: dysuria, frequency, urgency, hesitancy, hematuria, flank pain, genital pain MUSCULOSKELETAL: Absent: myalgia, arthralgia, joint swelling, back pain, neck pain SKIN: Absent: rash, itching, pallor HEMATOLOGIC/IMMUNOLOGIC: Absent: easy bleeding, easy bruising, lymphadenopathy, frequent infections ENDOCRINE: Absent: unexplained weight gain, unexplained weight loss, heat intolerance, cold intolerance NEUROLOGIC: Absent: headache, focal weakness or paresthesias, dizziness, unsteady gait, seizure, mental status changes, bladder or bowel incontinence PSYCHIATRIC: Absent: anxiety, depression, suicidal or homicidal ideation, hallucinations. PHYSICAL EXAMINATION Vital Signs - 24 hr 02/15/20 02/15/20 02/15/20 04:18 05:32 06:00 Temperature 98.1 F 98.8 F Pulse Rate 99 H 99 H Pulse Rate [ Apical] Pulse Rate [ 96 H Left] Respiratory 20 18 18 Rate Blood Pressure 139/121 H 127/86 Blood Pressure 126/80 [Right Arm] O2 Sat by Pulse 99 100 99 Oximetry (%) 02/15/20 02/15/20 02/15/20 07:30 10:13 12:05 Temperature 98.2 F 97.8 F Pulse Rate Pulse Rate [ Apical] Pulse Rate [ 109 H 84 Left] Respiratory 19 18 Rate Blood Pressure Blood Pressure 124/81 117/87 [Right Arm] O2 Sat by Pulse 99 99 97 Oximetry (%) 02/15/20 02/15/20 02/15/20 12:59 14:35 15:00 Temperature 98.0 F Pulse Rate Pulse Rate [ 110 H 116 H 114 H Apical] Pulse Rate [ Left] Respiratory 20 19 21 H Rate Blood Pressure Blood Pressure 127/59 L 129/92 120/64 [Right Arm] O2 Sat by Pulse 99 100 99 Oximetry (%) 02/15/20 02/15/20 02/15/20 16:20 17:11 18:00 Temperature 98.5 F Pulse Rate 126 H 142 H 109 H Pulse Rate [ Apical] Pulse Rate [ Left] Respiratory 30 H 30 H Rate Blood Pressure 124/73 124/73 124/70 Blood Pressure [Right Arm] O2 Sat by Pulse 97 100 Oximetry (%) 02/15/20 18:53 Temperature Pulse Rate Pulse Rate [ Apical] Pulse Rate [ Left] Respiratory Rate Blood Pressure Blood Pressure [Right Arm] O2 Sat by Pulse 100 Oximetry (%) GENERAL: Awake, alert, no acute distress. Oriented to name, month. Stated that in was in the 1970s, [place]. Knows age HEAD: Normal with no signs of trauma. EYES: extraocular movements intact, sclera anicteric, conjunctiva clear. EARS, NOSE, THROAT: Ears normal, nares patent, oropharynx clear without exudates. Moist mucous membranes. NECK: Normal range of motion, supple without lymphadenopathy, JVD, or masses. LUNGS: Breath sounds equal, clear to auscultation bilaterally. No wheezes, and no crackles. Breathing comfortably on 2L RA HEART: irregularly irregulary, HR up to 110s. Normal S1 and S2 without murmur, rub or gallop. ABDOMEN: Peg tube in place without surrounding erythema. Soft, nontender, not distended, No guarding, no rebound, no masses. MUSCULOSKELETAL: LUE contracture. No bony deformities or tenderness. No CVA tenderness. UPPER EXTREMITIES: 2+ pulses, warm, well-perfused. No cyanosis. No clubbing. Cap refill <2 seconds. No peripheral edema. LOWER EXTREMITIES: 2+ pulses, warm, well-perfused. No calf tenderness. No peripheral edema. NEUROLOGICAL: Cranial nerves II-XII intact. Left-sided facial droop. Flaccid LUE, with hand closed and slightly contracted. LLE with no active ROM. Short stuttering speech SKIN: Warm, dry, normal turgor, no rashes or lesions noted. Laboratory Results - last 24 hr 02/15/20 02/15/20 02/15/20 05:00 05:00 05:00 WBC 14.5 H RBC 3.62 Hgb 11.2 Hct 35.0 MCV 96.8 H MCH 30.9 MCHC 32.0 RDW 16.4 H Plt Count 269 MPV 9.5 Absolute Neuts (auto) 10.5 H Neutrophils % 72.7 Lymphocytes % 16.4 Monocytes % 8.8 Eosinophils % 1.7 Basophils % 0.4 Nucleated RBC % 0 PT with INR 13.60 H INR 1.13 H PTT (Actin FS) 26.5 Sodium Potassium Chloride Carbon Dioxide Anion Gap BUN Creatinine Est GFR (CKD-EPI)AfAm Est GFR (CKD-EPI)NonAf POC Glucometer Random Glucose Lactic Acid Calcium Total Bilirubin AST ALT Alkaline Phosphatase Troponin I 0.06 H B-Natriuretic Peptide Total Protein Albumin Urine Color Urine Appearance Urine pH Ur Specific [place] Urine Protein Urine Glucose (UA) Urine Ketones Urine Blood Urine Nitrite Urine Bilirubin Urine Urobilinogen Ur Leukocyte Esterase 02/15/20 02/15/20 02/15/20 05:00 05:34 06:00 WBC RBC Hgb Hct MCV MCH MCHC RDW Plt Count MPV Absolute Neuts (auto) Neutrophils % Lymphocytes % Monocytes % Eosinophils % Basophils % Nucleated RBC % PT with INR INR PTT (Actin FS) Sodium 140 Potassium 3.9 Chloride 102 Carbon Dioxide 29 Anion Gap 10 BUN 31.4 H Creatinine 1.1 Est GFR (CKD-EPI)AfAm 53.39 Est GFR (CKD-EPI)NonAf 46.07 POC Glucometer Random Glucose 143 H Lactic Acid 1.9 Calcium 9.2 Total Bilirubin 0.5 AST 34 ALT 47 Alkaline Phosphatase 283 H Troponin I B-Natriuretic Peptide 38806.1 H Total Protein 6.6 Albumin 3.0 L Urine Color Yellow Urine Appearance Clear Urine pH 7.0 Ur Specific [place] 1.009 L Urine Protein Negative Urine Glucose (UA) Negative Urine Ketones Negative Urine Blood Negative Urine Nitrite Negative Urine Bilirubin Negative Urine Urobilinogen 0.2 Ur Leukocyte Esterase Negative 02/15/20 02/15/20 02/15/20 08:04 14:24 17:16 WBC RBC Hgb Hct MCV MCH MCHC RDW Plt Count MPV Absolute Neuts (auto) Neutrophils % Lymphocytes % Monocytes % Eosinophils % Basophils % Nucleated RBC % PT with INR INR PTT (Actin FS) Sodium Potassium Chloride Carbon Dioxide Anion Gap BUN Creatinine Est GFR (CKD-EPI)AfAm Est GFR (CKD-EPI)NonAf POC Glucometer 139 149 Random Glucose Lactic Acid 2.0 Calcium Total Bilirubin AST ALT Alkaline Phosphatase Troponin I B-Natriuretic Peptide Total Protein Albumin Urine Color Urine Appearance Urine pH Ur Specific [place] Urine Protein Urine Glucose (UA) Urine Ketones Urine Blood Urine Nitrite Urine Bilirubin Urine Urobilinogen Ur Leukocyte Esterase Active Medications Generic Name Dose Route Start Last Admin Trade Name Freq PRN Reason Stop Dose Admin Acetaminophen 1,000 mg 02/15/20 16:17 Tylenol - PEG TID PRN PAIN Atorvastatin Calcium 40 mg 02/15/20 22:00 Lipitor - PEG HS [facility] Chlorhexidine Gluconate 1 applic 02/15/20 22:00 Hibiclens For Decolonization - TP HS [facility] Diltiazem HCl 60 mg 02/15/20 18:00 02/15/20 17:01 Cardizem - PEG 60 mg Q6HPO AUDI Administration Insulin Aspart 1 vial 02/15/20 16:30 02/15/20 17:18 Novolog Vial Sliding Scale - SQ Not Given ACHS [facility] Protocol Ipratropium [place] 1 amp 02/15/20 16:17 Atrovent 0.02% Nebulizer - NEB Q6H PRN ASTHMA Latanoprost 1 drop 02/15/20 22:00 Xalatan 0.005% Eye Drops - OU HS AUDI Lisinopril 10 mg 02/16/20 10:00 Prinivil PEG DAILY AUDI Metoprolol Tartrate 100 mg 02/15/20 22:00 Lopressor - PEG BID AUDI Metoprolol Tartrate 5 mg 02/15/20 16:22 02/15/20 17:11 Lopressor Injection - IVPUSH 5 mg Q4H PRN Administration TACHYCARDIA Mupirocin 1 applic 02/15/20 22:00 Bactroban Ointment (For Decolonization) - NS 02/20/20 21:59 BID [facility] Non-Formulary Medication 30 ml 02/15/20 16:17 Saliva Substitute Comb. No.12 [Oral Relief Dry Mouth] MM Q6H PRN <Dry mouth> ASSESSMENT/PLAN: 85F w/ pmh of HFpEF, multi-vessel CAD + CABG, GERD, HLD, HTN, pAF(was on warafarin but stopped years prior), recent CVA(~6weeks prior at [facility], with residual Left-sided droop, LUE, LLE weakness; sp mechanical thrombectomy); brought in from [facility] due to concern of labored breathing with desaturation to 87% on RA then tachycardia to 130s. Diagnosed with RLL segmental pulmonary embolism. Heparin gtt was started but stopped once patient displayed findings concerning for AMS(L-sided facial droop, abnormal speech). CTH showing possible SAH vs cortical reperfusion and late enchancement from earlier contrast study for the CTA chest. Admitted to ICU for continued neurochecks NEUO #chronic CVA w/ Left-sided deficits(L-sided facial droop, LUE weakness, LLE weakness) #possible SAH? vs contrast enhancement from reperfusion? -- no change in mental status as per pt's daughter at bedside > CTH(done 4-6h after CTA chest): SAH vs cortical reperfusion > rpt CTH(done ~13h after CTA chest): unchanged > rpt CTH to be scheduled for 02/16/20 AM > [id number] ~6 - NSx consult(Sd Mccabe): --unlikely acute bleed --MRI to r/o acute ischemia, or repeating CT head this evening/tomorrow morning --no neurosurgical intervention indicated - Neuro consult(Alphonso Douglass) --most likely scattered enhancement of the infarct d/t large IV contrast load given a few hours prior --doubt secondary hemorrhage, but would NOT be a contraindication to heparin for the proven PE --rpt non-contrast CT head tomorrow or Tuesday morning - cw home atorvastatin PULM #mild hypoxia --2/2 RLL segmental PE #RLL segmental PE > CXR(02/15/20): b/l pleural effusions w/ congestive changes and possible basilar atelectasis or infiltrates with L>R - supplemental O2: NC 2L - heparin gtt HELD until evaluation for evolution of ?SAH CARDIO #elevatted troponin #elevated BNP #Afib + RVR #chronic HTN > troponin 0.06 --likely demand ischemia from Afib + RVR or PE --will trend until peak > BNP > 14k --pt appears euvolemic --cw home dose lasix - rate control: --diltiazem 60 q6,h, lopressor 100mg BID, lopressor 5mg IVP PRN - cw home lisinopril GI - no active issues - NPO until SAH is r/o NEPHRO - no active issues ENDO #chronic DM HEME #leukocytosis -- no obvious source > UA normal > CXR showing pleural effusion - will trend WBC, no abx for now FEN - NS @75 - NPO(okay for meds) until r/o SAH DVT PPX - SCDs Dispo: We will continue to follow the patient. Thank you for this consultative opportunity. Visit type - Medication Review Med list reviewed for High Risk Meds patients 65 and older: Yes - Emergency Visit Emergency Visit: Yes ED Registration Date: 02/15/20 Care time: The patient presented to the Emergency Department on the above date and was hospitalized for further evaluation of their emergent condition. - New Patient This patient is new to me today: Yes Date on this admission: 02/15/20 - Critical Care Critical Care patient: Yes Total Critical Care Time (in minutes): 35 Critical Care Statement: The care of this patient involved high complexity decision making to prevent further life threatening deterioration of the patient's condition and/or to evaluate & treat vital organ system(s) failure or risk of failure. ATTENDING PHYSICIAN STATEMENT I saw and evaluated the patient. I reviewed the resident's note and discussed the case with the resident. I agree with the resident's findings and plan as documented. SUBJECTIVE: OBJECTIVE: ASSESSMENT AND PLAN:
--- NOTE | 2020-02-15 21:21 | CONSULT ---
Consult - text type - Consultation Consultation Note: NEUROLOGY CONSULTATION is greatly appreciated: Events reviewed and discussed with RN. CT reviewed. Dr. Mccabe's consultation is read and appreciated. This 85 yo RH woman with h/o HTN, DM and Chol is s/p acute CVA at [facility] 2 weeks ago with left hemiplegia. Now admitted from [facility] with SOB this AM and CTA proven PD- on heparin CT of head (reviewed): Subacute but well defined right MCA-territory CVA with mild hemispheric swelling and heterogenous "enhancement" +/- heme. MELANIA: Neck supple. No bruits. Cor reg. NEURO: Awake, alert, fluent but confused. O x hospital. November. No year Cannot identify left hand as her own ("my 's hand"). + Glabella Left homonomous hemianopsia but NO Gaze deviation Mod left facial droop Dense left hemiplegia, still with depressed reflexes on left and a left Babinski. Reduced reaction to pinch on left. IMP: Subacute right cerebral dysfunction c/w MCA infarct. The admittedly unusual CT appearance is most likely scattered enhancement of the infarct due to the large IV contrast load given a few hours prior for the CT Pulmonary angio which would still be in the circulation. Doubt secondary hemorrhaghic change- but even if present, would NOT be a contraindication to Heparin for the proven PE. SUGGEST: Repeat a non-contrast CT of head tomorrow or Tuesday morning- rather than MRI. If the increased signal is from contrast it should resolve. If from blood it will still be present. Thank you very much, Alphonso Douglass MD
[2020-02-15] MEDS: CHLORHEXIDINE GLUCONATE 4% CLEANSER FOR DECOLONIZATION TP SCH (21:30)
[2020-02-15] MEDS ORDERED: ATORVASTATIN CA 40 MG TABLET (FP) PEG SCH (22:00)
[2020-02-15] MEDS ORDERED: LATANOPROST 0.005% OPHTH SOLN 2.5ML BOTTLE OU SCH (22:00)
[2020-02-15] MEDS ORDERED: INSULIN (LEVEMIR) 100 UNITS/ML UNITS SQ SCH (22:00)
[2020-02-15] MEDS ORDERED: GABAPENTIN 100 MG CAPSULE PEG SCH (22:00)
[2020-02-15] MEDS ORDERED: METOPROLOL TARTRATE 50 MG TABLET (FP) PEG SCH (22:00)
[2020-02-15] MEDS: MUPIROCIN 2% TOPICAL OINTMENT FOR DECOLONIZATION NS SCH (23:34)
[2020-02-15] MEDS: LATANOPROST 0.005% OPHTH SOLN 2.5ML BOTTLE OU SCH (23:35)
[2020-02-15] MEDS ORDERED: SODIUM CHLORIDE 1,000 ML IV SCH (23:45)
[2020-02-15] MEDS: METOPROLOL TARTRATE 50 MG TABLET (FP) PEG SCH (23:47)
[2020-02-15] MEDS: ATORVASTATIN CA 40 MG TABLET (FP) PEG SCH (23:48)
[2020-02-16] MEDS: INSULIN SLIDING SCALE (NOVOLOG) 1 VIAL SQ SCH ×5 (01:48→21:39)
[2020-02-16] MEDS: dilTIAZem HCL 60 MG TABLET PEG SCH ×4 (01:49→18:31)
[2020-02-16 07:14] LABS: POTASSIUM 3.5 mmol/L (3.5-5.1)
[2020-02-16 07:18] LABS: ALBUMIN 2.6 g/dl (3.4-5.0); BLOOD UREA NITROGEN 21.9 mg/dL (7-18); CALCIUM 8.7 mg/dL (8.5-10.1)
[2020-02-16 07:22] LABS: BILIRUBIN,TOTAL 0.8 mg/dL (0.2-1); CREATININE 0.8 mg/dL (0.55-1.3); TOT PROT 5.9 g/dl (6.4-8.2)
--- NOTE | 2020-02-16 08:20 | PN ---
Progress Note (short form) - Note Progress Note: Pulm/CCM Progress note: Pt seen and examined in ICU 24Hr: -overnight CT head unchanged, recommended from Neuro to repeat this am -Neuro surg ---> not surgical issue -awake to baseline per report this morning, hemodynamically stable Vital Signs Temp 98.5 F 02/15/20 16:20 Pulse 85 02/16/20 04:07 Resp 16 02/16/20 04:07 BP 113/81 02/16/20 04:07 Pulse Ox 99 02/15/20 20:17 Intake & Output 02/15/20 02/15/20 02/16/20 11:59 23:59 11:59 Intake Total 75 Balance 75 Weight 72.575 kg 68.22 kg 68.748 kg Intake: IV 75 Normal Saline - 1,000 ml 75 @ 75 mls/hr IV ASDIR [facility] Rx#:[id number] Other: Voiding Method Diaper Diaper Incontinent # Unmeasured Voids Void 2 3 Bowel Movement No No Height 5 ft 5 in 5 ft 5 in Body Mass Index (BMI) 26.6 26.6 Weight Measurement Method Built in [facility] Weight Measurement Method Estimated by Staff Allergies Allergy/AdvReac Type Severity Reaction Status Date / Time No Known Allergies Allergy Verified 02/15/20 04:18 Active Medications Acetaminophen (Tylenol -) 1,000 mg PEG TID PRN PRN Reason: PAIN Atorvastatin Calcium (Lipitor -) 40 mg PEG HS [facility] Last Admin: 02/15/20 23:48 Dose: 40 mg Documented by: Chlorhexidine Gluconate (Hibiclens For Decolonization -) 1 applic TP HS [facility] Last Admin: 02/15/20 21:30 Dose: 1 applic Documented by: Diltiazem HCl (Cardizem -) 60 mg PEG Q6HPO [facility] Last Admin: 02/16/20 06:35 Dose: 60 mg Documented by: Sodium Chloride (Normal Saline -) 1,000 mls @ 75 mls/hr IV ASDIR [facility] Last Admin: 02/16/20 01:49 Dose: 75 mls/hr Documented by: Insulin Aspart (Novolog Vial Sliding Scale -) 1 vial SQ ACHS [facility]; Protocol Last Admin: 02/16/20 01:48 Dose: Not Given Documented by: Ipratropium [place] (Atrovent 0.02% Nebulizer -) 1 amp NEB Q6H PRN PRN Reason: ASTHMA Latanoprost (Xalatan 0.005% Eye Drops -) 1 drop OU HS [facility] Last Admin: 02/15/20 23:35 Dose: 1 drop Documented by: Lisinopril (Prinivil) 10 mg PEG DAILY [facility] Metoprolol Tartrate (Lopressor -) 100 mg PEG BID [facility] Last Admin: 02/15/20 23:47 Dose: 100 mg Documented by: Metoprolol Tartrate (Lopressor Injection -) 5 mg IVPUSH Q4H PRN PRN Reason: TACHYCARDIA Last Admin: 02/15/20 17:11 Dose: 5 mg Documented by: Mupirocin (Bactroban Ointment (For Decolonization) -) 1 applic NS BID [facility] Stop: 02/20/20 21:59 Last Admin: 02/15/20 23:34 Dose: 1 applic Documented by: Non-Formulary Medication (Saliva Substitute Comb. No.12 [Oral Relief Dry Mouth]) 30 ml MM Q6H PRN PRN Reason: <Dry mouth> Laboratory Results - last 24 hr 02/15/20 02/15/20 02/15/20 08:04 14:24 17:16 Sodium Potassium Chloride Carbon Dioxide Anion Gap BUN Creatinine Est GFR (CKD-EPI)AfAm Est GFR (CKD-EPI)NonAf POC Glucometer 139 149 Random Glucose Hemoglobin A1c % Lactic Acid 2.0 Calcium Total Bilirubin AST ALT Alkaline Phosphatase Creatine Kinase Troponin I Total Protein Albumin Triglycerides Cholesterol Total LDL Cholesterol HDL Cholesterol 02/16/20 02/16/20 02/16/20 01:14 01:40 06:00 Sodium 143 Potassium 3.5 Chloride 104 Carbon Dioxide 29 Anion Gap 9 BUN 21.9 H Creatinine 0.8 Est GFR (CKD-EPI)AfAm 78.47 Est GFR (CKD-EPI)NonAf 67.70 POC Glucometer 128 Random Glucose 115 H Hemoglobin A1c % Lactic Acid Calcium 8.7 Total Bilirubin 0.8 AST 33 ALT 39 Alkaline Phosphatase 218 H Creatine Kinase 30 Troponin I 0.06 H 0.06 H Total Protein 5.9 L Albumin 2.6 L Triglycerides 199 H Cholesterol 88 Total LDL Cholesterol 48 HDL Cholesterol 31 L 02/16/20 02/16/20 06:00 06:04 Sodium Potassium Chloride Carbon Dioxide Anion Gap BUN Creatinine Est GFR (CKD-EPI)AfAm Est GFR (CKD-EPI)NonAf POC Glucometer 129 Random Glucose Hemoglobin A1c % 7.5 H Lactic Acid Calcium Total Bilirubin AST ALT Alkaline Phosphatase Creatine Kinase Troponin I Total Protein Albumin Triglycerides Cholesterol Total LDL Cholesterol HDL Cholesterol PE: Gen-awake, knows she is in hospital HEENT: EOMI, possible L facial droop PULM: clear CV: irreg. 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 Diagnosed with RLL segmental pulmonary embolism. Heparin gtt was started but stopped once patient displayed findings concerning for AMS(L-sided facial droop, abnormal speech). CTH showing possible SAH vs cortical reperfusion and late enchancement from earlier contrast study for the CTA chest. Admitted to ICU for continued neurochecks, now with improved mental status, repeat imaging pending. NEUO-possible new CVA but less likely -Neuro and NSurg recs appreciated -consider MRI as outpt PULM: RLL segmental PE - supplemental O2: NC 2L - heparin gtt to be restarted after this am CTH CARDIO-pAF, HTN -ACEI -rate control cardizem GI - no active issues NEPHRO - no active issues ENDO #chronic DM HEME #leukocytosis -- no obvious source > UA normal > CXR showing pleural effusion - will trend WBC, no abx for now FEN - PEG feeding DVT PPX - SCDs -heparin gtt Dispo:Ok for floor
[2020-02-16] MEDS ORDERED: HEPARIN NA (PORCINE) 5,000 UNITS/ML 1ML VIAL IVPUSH PRN ×2 (09:13→09:15)
--- NOTE | 2020-02-16 09:19 | PN ---
Progress Note, Physician - Current Medication List Current Medications: Active Medications Acetaminophen (Tylenol -) 1,000 mg PEG TID PRN PRN Reason: PAIN Atorvastatin Calcium (Lipitor -) 40 mg PEG HS [facility] Last Admin: 02/15/20 23:48 Dose: 40 mg Documented by: Chlorhexidine Gluconate (Hibiclens For Decolonization -) 1 applic TP HS [facility] Last Admin: 02/15/20 21:30 Dose: 1 applic Documented by: Diltiazem HCl (Cardizem -) 60 mg PEG Q6HPO [facility] Last Admin: 02/16/20 06:35 Dose: 60 mg Documented by: Heparin Sodium (Porcine) (Heparin -) 1,000 unit IVPUSH PRN PRN PRN Reason: Heparin Heparin Sodium (Porcine) (Heparin -) 1,000 unit IVPUSH PRN PRN PRN Reason: Heparin Heparin Sodium (Porcine) (Heparin -) 5,000 unit IVPUSH PRN PRN PRN Reason: Heparin Sodium Chloride (Normal Saline -) 1,000 mls @ 75 mls/hr IV ASDIR [facility] Last Admin: 02/16/20 01:49 Dose: 75 mls/hr Documented by: Heparin Sodium/Dextrose (Heparin Infusion -) 25,000 units in 500 mls @ 20 mls/hr IVPB TITR [facility]; Protocol Insulin Aspart (Novolog Vial Sliding Scale -) 1 vial SQ ACHS [facility]; Protocol Last Admin: 02/16/20 01:48 Dose: Not Given Documented by: Ipratropium [place] (Atrovent 0.02% Nebulizer -) 1 amp NEB Q6H PRN PRN Reason: ASTHMA Latanoprost (Xalatan 0.005% Eye Drops -) 1 drop OU [facility] Last Admin: 02/15/20 23:35 Dose: 1 drop Documented by: Lisinopril (Prinivil) 10 mg PEG DAILY [facility] Metoprolol Tartrate (Lopressor -) 100 mg PEG BID [facility] Last Admin: 02/15/20 23:47 Dose: 100 mg Documented by: Metoprolol Tartrate (Lopressor Injection -) 5 mg IVPUSH Q4H PRN PRN Reason: TACHYCARDIA Last Admin: 02/15/20 17:11 Dose: 5 mg Documented by: Mupirocin (Bactroban Ointment (For Decolonization) -) 1 applic NS BID [facility] Stop: 02/20/20 21:59 Last Admin: 02/15/20 23:34 Dose: 1 applic Documented by: Non-Formulary Medication (Saliva Substitute Comb. No.12 [Oral Relief Dry Mouth]) 30 ml MM Q6H PRN PRN Reason: <Dry mouth> - Objective Vital Signs: Vital Signs Temperature 98.5 F 02/15/20 16:20 Pulse Rate 85 02/16/20 04:07 Respiratory Rate 16 02/16/20 04:07 Blood Pressure 113/81 02/16/20 04:07 O2 Sat by Pulse Oximetry (%) 99 02/15/20 20:17 Cardiovascular: Yes: S1, S2 Respiratory: Yes: Regular, CTA Bilaterally Gastrointestinal: Yes: Normal Bowel Sounds, Soft Neurological: Yes: Alert, Pre-Existing Deficit, Other (left dawson) Labs: CBC, BMP 02/15/20 05:00 02/16/20 06:00 INR, PTT INR 1.13 (0.83-1.09) H 02/15/20 05:00 Problem List - Problems (1) Afib Assessment/Plan: Monitor rate cardio consult resume heparin Neuro appreciated Code(s): I48.91 - UNSPECIFIED ATRIAL FIBRILLATION (2) Subdural hematoma Assessment/Plan: follow up ct no change icu care neurosurgical consult appreciated Code(s): S06.5X9A - TRAUM SUBDR HEM W LOC OF UNSP DURATION, INIT (3) CVA (cerebral vascular accident) Assessment/Plan: old--r/o new cva event monitor follow up CT Covid pending Code(s): I63.9 - CEREBRAL INFARCTION, UNSPECIFIED (4) Hypoxic Assessment/Plan: Improved oxygen and monitor Vital Signs Period Temp Pulse Resp BP Sys/Gonzalez Pulse Ox Last 24 Hr 97.8 F-98.5 F 84-142 16-30 113-129/59-92 97-100 Code(s): R09.02 - HYPOXEMIA (5) Pulmonary embolus Assessment/Plan: Resume Heparin Pulm consult Duplex with DVT Code(s): I26.99 - OTHER PULMONARY EMBOLISM WITHOUT ACUTE COR PULMONALE Qualifiers: Pulmonary embolism type: single subsegmental (without acute cor pulmonale) Qualified Code(s): I26.93 - Single subsegmental pulmonary embolism without acute cor pulmonale (6) DVT (deep venous thrombosis) Assessment/Plan: Continue with Heparin Code(s): I82.409 - ACUTE EMBOLISM AND THOMBOS UNSP DEEP VN UNSP LOWER EXTREMITY
[2020-02-16] MEDS ORDERED: LISINOPRIL 10 MG TABLET PEG SCH (10:00)
--- NOTE | 2020-02-16 10:02 | PN ---
Progress Note (short form) - Note Progress Note: NEUROSURGERY H/o HTN, DM, Afib, h/o CVA with residual L hemiparesis from [facility] NH was admitted for dyspnea and hypoxia. + pulmonary embolism on CTA chest as well as B pleural effusions. Denies H/A, N/V, sz. Stated she was at [facility] a couple weeks ago with her stroke PE: T 98, BP124/73, [place] 120's, O2 sat 100% on 2L O2 Speech slow but comprehensible, awake/oriented x2, memory mildly impaired HEENT- NC/AT; Cor- Irreg; Lungs- decreased at bases B; Abd- benign; Ext- dependent edema L . R CN- L lower facial droop, tongue to R; Motor- dense L hemiparesis; Sensory- grossly intact LT; DTR- 1+, L toe upgoing WBC 14.5, INR 1.13; Cr 1.1, BUN 31.[address]- multifocal R hemispheric (frontal, temporal, parietal >> occipital) cortical/subcortical gyriform hyperdensity with effacement of sulci. white matter hypodensity (centrum-semiovale) R > L. Moderate atrophy with moderate ventriculomegaly, no midline shift; earlier contrast during the day could have interfered with this non-contrast study's appearance F/u CT: slightly less dense cortical-subcortical gyriform hyperdensity with no significant mass effect or shift Chest CT- RLL segmental PE, pleural effusion B Doppler LE: L LE DVT Covid serology pending Mot likely subacute-chronic R hemispheric infarct with cortical-subcortical gyriform hyperdensity (reperfusion related hyperdensity), though underlying acute infarct cannot be ruled out Hyperdensity unlikely acute bleed since pt would not be doing as well as she is now with this amount of acute blood; likely contrast retention/vascular stasis in prior infarct zone R/o Covid given presence of multi-system thrombo-embolism (recent prior CVA; current L LE DVT; current RLL PE) MRI would most ideal to r/o acute ischemia if feasible If MRI cannot be safely performed, should repeat head CT again today to assess pattern of hyperdensity, if any Obtain prior head CT (prior acute care institution) images and report if possible for radiology comparison to determine new findings vs evolution of recent past pathology No neurosurgical intervention indicated as this is more a neurology stroke management issue Given multi-system thromboembolism in an elderly patient with significant medical co-morbidities, prognosis is poor Treatment for DVT/PE should take priority at this time, and would favor AC with a potential reversal agent
[2020-02-16] MEDS: HEPARIN INFUSION - 25,000 UNITS/500 ML INFUS.BAG IVPB SCH (10:48)
[2020-02-16] MEDS: LISINOPRIL 10 MG TABLET PEG SCH (10:49)
[2020-02-16] MEDS: METOPROLOL TARTRATE 50 MG TABLET (FP) PEG SCH ×2 (10:49→21:37)
[2020-02-16] MEDS: MUPIROCIN 2% TOPICAL OINTMENT FOR DECOLONIZATION NS SCH ×2 (12:29→21:44)
--- NOTE | 2020-02-16 15:32 | EKG ---
Test Reason : Blood Pressure : / mmHG Vent. Rate : 099 BPM Atrial Rate : 107 BPM P-R Int : 000 ms QRS Dur : 064 ms QT Int : 332 ms P-R-T Axes : 000 079 264 degrees QTc Int : 426 ms ATRIAL FIBRILLATION NONSPECIFIC T WAVE ABNORMALITY ABNORMAL ECG NO PREVIOUS ECGS AVAILABLE Confirmed by GENTRY BONILLA MD ([id number]) on 02/16/2020 3:32:20 PM Referred By: Confirmed By:GENTRY BONILLA MD
[2020-02-16] MEDS ORDERED: IPRATROPIUM BR 0.02% 0.5 MG/2.5 ML VIAL.NEB. NEB PRN (20:33)
[2020-02-16] MEDS: ATORVASTATIN CA 40 MG TABLET (FP) PEG SCH (21:38)
[2020-02-16] MEDS ORDERED: PT OWN MED DRAWER 7, Y5N ONE (21:56)
[2020-02-16] MEDS: HEPARIN NA (PORCINE) 5,000 UNITS/ML 1ML VIAL IVPUSH PRN (22:00)
[2020-02-16] MEDS: CHLORHEXIDINE GLUCONATE 4% CLEANSER FOR DECOLONIZATION TP SCH (23:06)
[2020-02-17] MEDS: LATANOPROST 0.005% OPHTH SOLN 2.5ML BOTTLE OU SCH ×2 (00:18→21:01)
[2020-02-17] MEDS: dilTIAZem HCL 60 MG TABLET PEG SCH ×4 (00:21→18:11)
[2020-02-17] MEDS: INSULIN SLIDING SCALE (NOVOLOG) 1 VIAL SQ SCH ×4 (06:17→21:01)
[2020-02-17 06:51] LABS: HEMATOCRIT 39.3 % (32.4-45.2); HEMOGLOBIN 12.5 GM/dL (10.7-15.3); MCHC 31.8 g/dl (32.0-36.0); MEAN CELL VOLUME 97.4 fl (80-96); MEAN PLT VOLUME 9.5 fl (7.5-11.1); PLATELET COUNT 295 K/MM3 (134-434); RBC 4.04 M/mm3 (3.60-5.2); RDW 16.6 % (11.6-15.6); WHITE BLOOD COUNT 10.8 K/mm3 (4.0-10.0)
[2020-02-17 07:11] LABS: POTASSIUM 3.6 mmol/L (3.5-5.1)
[2020-02-17 07:13] LABS: CALCIUM 9.3 mg/dL (8.5-10.1)
[2020-02-17 07:14] LABS: BLOOD UREA NITROGEN 15.8 mg/dL (7-18); MAGNESIUM 2.1 mg/dL (1.8-2.4)
[2020-02-17 07:16] LABS: CREATININE 0.8 mg/dL (0.55-1.3); PHOSPHOROUS 3.1 mg/dL (2.5-4.9)
[2020-02-17] MEDS: HEPARIN NA (PORCINE) 5,000 UNITS/ML 1ML VIAL IVPUSH PRN ×2 (07:45→18:24)
--- NOTE | 2020-02-17 08:39 | CONS ---
DATE OF CONSULTATION: 02/15/2020 CHIEF COMPLAINT: Right hemispheric hyperdensity. HISTORY OF PRESENT ILLNESS: Patient is an 85-year-old right-handed female with history of hypertension, diabetes, recent right hemispheric CVA, atrial fibrillation, who was admitted to [facility] recently after she had sustained acute stroke. She was initially admitted to the [facility] by her report and was subsequently transferred to [facility] for rehabilitation. She was found there at the nursing facility to be dyspneic and hypoxic. She was sent to the emergency room, where she was found to have pulmonary embolism on CAT scan of the chest. The patient denies any headache, nausea, vomiting, seizure activity, but has persistent left hemiparesis since her stroke. She has no other new complaints at this time. PAST MEDICAL HISTORY: Significant for recent CVA, atrial fibrillation, diabetes, hypertension. CURRENT MEDICATIONS: Include Tylenol, Prinivil, Lopressor, Cardizem, Atrovent nebulizer, Lipitor, insulin coverage, subcutaneous insulin coverage, and latanoprost eye drops. ALLERGIES: There is no known drug allergy. FAMILY HISTORY: Noncontributory. SOCIAL HISTORY: She does not smoke or drink. She usually lives at home. REVIEW OF SYSTEMS: Otherwise negative for other major constitutional, head and neck, cardiovascular, pulmonary, gastrointestinal, genitourinary, endocrinological, neurological or psychological problems except for the above. PHYSICAL EXAMINATION: Vital Signs: Temperature was 98.5. Blood pressure is 124/70 with pulse rate of 109. O2 saturation 100% on room air. HEENT: Examination shows her to be normocephalic, atraumatic, anicteric. Neck: Supple with no carotid bruit. Coronary: Examination demonstrated irregular rhythm. Lungs: Showed decreased breath sounds at the bases. Abdomen: Benign. Extremities: Examination shows no obvious signs of DVT. There is some gravity dependent edema. Neurologic: She is awake and alert, oriented x2. Her speech is generally comprehensible even though it was somewhat slow. Her memory is slightly impaired. Cranial nerve examination shows a left lower facial droop and her tongue deviates to the right. Motor examination shows the dense left hemiparesis with slight increase in tone. Sensory examination is intact to light touch. Deep tendon reflexes are 1+ throughout. Her left big toe is upgoing. Gait cannot be safely tested. LABORATORY: Extension shows a white blood cell count of 14.5. Hemoglobin is 11.2 and platelet count is 269,000. INR is 1.13 and PTT is 26.5. Serum sodium is 140 and potassium 3.9. BUN is 31.4 and creatinine 1.1. Urine analysis is negative. COVID-19 serology is pending. Blood culture and urine culture are also pending. CT scan of the chest demonstrated bilateral pleural effusion as well as right lower lobe segmental pulmonary embolism. CT scan of the head demonstrated diffuse right hemispheric cortical and subcortical gyriform hyperdensity. This is most prominent in the frontotemporoparietal lobe greater than the occipital lobe. There is moderate cerebral atrophy and moderate ventricular dilatation. There is no midline shift. There is paucity of right-sided cerebral sulci. The patient had received CT contrast earlier in the day for her chest CT. IMPRESSION: 1. Probable subacute-chronic right middle cerebral artery ischemia with cortical/subcortical gyriform residual enhancement. 2. Hypertension/atrial fibrillation. 3. Diabetes. RECOMMENDATIONS: Patient presents with dyspnea likely related to her new diagnosis of pulmonary embolism. She had previously sustained a stroke a couple weeks earlier, and now has a second thromboembolic event. Want you rule out COVID-19 given the new onset thromboembolic event. CT scan of the head demonstrated extensive right hemispheric cortical and subcortical gyriform hyperdensity, but the patient had previously received IV contrast earlier for her CT scan of the chest for the CTA. This could be residual contrast which would be consistent with subacute-chronic stroke with cortical and subcortical gyriform enhancement pattern. There is paucity of cortical sulci which could be residual edema. In any event, the patient would look too well clinically to have this degree of acute cortical and subcortical hemorrhage over the entire right hemisphere. Therefore, I do not believe acute hemorrhage is the finding on the CT scan on this time. A repeat noncontrast CT scan of the head should be contemplated later this evening or tomorrow morning to ascertain whether this is contrast enhancement. An MRI would be ideal to rule out acute ischemia in face of a chronic ischemia. If that could not be performed safely, at least a noncontrast CT should be done to ascertain stability of the findings. It would also be helpful if one could secure images and reports of her CT scan from her prior acute care hospital so a comparison could be made. Regardless, this appears to be more a stroke management issue with neurology rather than neurosurgical issue. If there is no acute hemorrhage, a case could be made for low dose anticoagulation to treat her pulmonary embolism more aggressively. CHRISTA NGO M.D. [facility]HOACANO/[id number]
--- NOTE | 2020-02-17 08:56 | PN ---
Progress Note (short form) - Note Progress Note: NEUROSURGERY H/o HTN, DM, Afib, h/o CVA with residual L hemiparesis from [facility] NH was admitted for dyspnea and hypoxia. + pulmonary embolism on CTA chest as well as B pleural effusions. Denies H/A, N/V, sz. Stated she was at [facility] a couple weeks ago with her stroke. On heparin for DVT/PE PE: T 97.9, VSS Speech more fluent, awake/oriented x2, slightly anxious HEENT- NC/AT; Cor- Irreg; Lungs- decreased at bases B; Abd- benign; Ext- dependent edema L . R CN- L lower facial droop, tongue to R; Motor- dense L hemiparesis unchanged; Sensory- grossly intact LT; DTR- 1+, L toe upgoing WBC 10.8, trending down Head CT- multifocal R hemispheric (frontal, temporal, parietal >> occipital) cortical/subcortical gyriform hyperdensity with effacement of sulci. white matter hypodensity (centrum-semiovale) R > L. Moderate atrophy with moderate ventriculomegaly, no midline shift F/u CT: slightly less dense cortical-subcortical gyriform hyperdensity with no significant mass effect or shift Chest CT- RLL segmental PE, pleural effusion B Second f/u: less hyperdensity, otherwise unchanged; cortical gyral fullness unchanged Covid serology negative Most likely subacute-chronic R hemispheric infarct with cortical-subcortical gyriform hyperdensity (reperfusion related hyperdensity) and edema, though underlying acute infarct cannot be ruled out Hyperdensity unlikely acute bleed given her fairly stable neuro status with this amount of acute blood; likely contrast retention/vascular stasis in prior infarct zone MRI would most ideal to r/o acute ischemia if feasible No neurosurgical intervention indicated Treatment for DVT/PE should take priority at this time, and would favor AC with a potential reversal agent Repeat CT prn neuro changes
[2020-02-17] MEDS: MUPIROCIN 2% TOPICAL OINTMENT FOR DECOLONIZATION NS SCH ×2 (09:23→21:00)
[2020-02-17] MEDS: LISINOPRIL 10 MG TABLET PEG SCH (09:23)
[2020-02-17] MEDS: HEPARIN INFUSION - 25,000 UNITS/500 ML INFUS.BAG IVPB SCH (09:23)
[2020-02-17] MEDS: METOPROLOL TARTRATE 50 MG TABLET (FP) PEG SCH ×2 (09:23→21:00)
--- NOTE | 2020-02-17 12:52 | PN ---
Progress Note, Physician - Current Medication List Current Medications: Active Medications Acetaminophen (Tylenol -) 1,000 mg PEG TID PRN PRN Reason: PAIN Atorvastatin Calcium (Lipitor -) 40 mg PEG HS [facility] Last Admin: 02/16/20 21:38 Dose: 40 mg Documented by: Chlorhexidine Gluconate (Hibiclens For Decolonization -) 1 applic TP HS [facility] Last Admin: 02/16/20 23:06 Dose: 1 applic Documented by: Diltiazem HCl (Cardizem -) 60 mg PEG Q6HPO [facility] Last Admin: 02/17/20 12:06 Dose: 60 mg Documented by: Heparin Sodium (Porcine) (Heparin -) 1,000 unit IVPUSH PRN PRN PRN Reason: Heparin Heparin Sodium (Porcine) (Heparin -) 5,000 unit IVPUSH PRN PRN PRN Reason: Heparin Last Admin: 02/17/20 07:45 Dose: 5,000 unit Documented by: Heparin Sodium/Dextrose (Heparin Infusion -) 25,000 units in 500 mls @ 20 m ls/hr IVPB TITR [facility]; Protocol Last Admin: 02/17/20 09:23 Dose: 1,300 units/hr, 26 mls/hr Documented by: Insulin Aspart (Novolog Vial Sliding Scale -) 1 vial SQ ACHS [facility]; Protocol Last Admin: 02/17/20 11:49 Dose: Not Given Documented by: Ipratropium [place] (Atrovent 0.02% Nebulizer -) 1 amp NEB Q6H PRN PRN Reason: ASTHMA Latanoprost (Xalatan 0.005% Eye Drops -) 1 drop OU HS [facility] Last Admin: 02/17/20 00:18 Dose: 1 drop Documented by: Lisinopril (Prinivil) 10 mg PEG DAILY [facility] Last Admin: 02/17/20 09:23 Dose: 10 mg Documented by: Metoprolol Tartrate (Lopressor -) 100 mg PEG BID [facility] Last Admin: 02/17/20 09:23 Dose: 100 mg Documented by: Metoprolol Tartrate (Lopressor Injection -) 5 mg IVPUSH Q4H PRN PRN Reason: TACHYCARDIA Last Admin: 02/15/20 17:11 Dose: 5 mg Documented by: Mupirocin (Bactroban Ointment (For Decolonization) -) 1 applic NS BID [facility] Stop: 02/20/20 21:59 Last Admin: 02/17/20 09:23 Dose: 1 applic Documented by: Non-Formulary Medication (Saliva Substitute Comb. No.12 [Oral Relief Dry Mouth]) 30 ml MM Q6H PRN PRN Reason: <Dry mouth> - Objective Vital Signs: Vital Signs Temperature 97.9 F 02/17/20 05:00 Pulse Rate 83 02/17/20 07:00 Respiratory Rate 11 02/17/20 07:00 Blood Pressure 133/81 02/17/20 07:00 O2 Sat by Pulse Oximetry (%) 94 L 02/16/20 21:00 Cardiovascular: Yes: S1, S2 Respiratory: Yes: Regular, CTA Bilaterally Gastrointestinal: Yes: Normal Bowel Sounds, Soft Neurological: Yes: Alert, Pre-Existing Deficit Labs: CBC, BMP 02/17/20 06:00 02/17/20 06:00 INR, PTT INR 1.13 (0.83-1.09) H 02/15/20 05:00 Problem List - Problems (1) Afib Assessment/Plan: Monitor rate cardio consult resume heparin Neuro appreciated Code(s): I48.91 - UNSPECIFIED ATRIAL FIBRILLATION (2) Subdural hematoma Assessment/Plan: follow up ct no change icu care neurosurgical consult appreciated Code(s): S06.5X9A - TRAUM SUBDR HEM W LOC OF UNSP DURATION, INIT (3) CVA (cerebral vascular accident) Assessment/Plan: old--r/o new cva event monitor follow up CT Covid pending Code(s): I63.9 - CEREBRAL INFARCTION, UNSPECIFIED (4) Hypoxic Assessment/Plan: Improved oxygen and monitor Vital Signs Period Temp Pulse Resp BP Sys/Gonzalez Pulse Ox Last 24 Hr 97.8 F-98.5 F 84-142 16-30 113-129/59-92 97-100 Code(s): R09.02 - HYPOXEMIA (5) Pulmonary embolus Assessment/Plan: Resume Heparin Pulm consult Duplex with DVT Code(s): I26.99 - OTHER PULMONARY EMBOLISM WITHOUT ACUTE COR PULMONALE Qualifiers: Pulmonary embolism type: single subsegmental (without acute cor pulmonale) Qualified Code(s): I26.93 - Single subsegmental pulmonary embolism without acute cor pulmonale (6) DVT (deep venous thrombosis) Assessment/Plan: Continue with Heparin Code(s): I82.409 - ACUTE EMBOLISM AND THOMBOS UNSP DEEP VN UNSP LOWER EXTREMITY
[2020-02-17 13:25] VITALS: BMI 24.7
[2020-02-17] MEDS: CHLORHEXIDINE GLUCONATE 4% CLEANSER FOR DECOLONIZATION TP SCH (21:00)
[2020-02-17] MEDS: ATORVASTATIN CA 40 MG TABLET (FP) PEG SCH (21:01)
[2020-02-18] MEDS: dilTIAZem HCL 60 MG TABLET PEG SCH ×4 (00:59→17:47)
[2020-02-18] MEDS: INSULIN SLIDING SCALE (NOVOLOG) 1 VIAL SQ SCH ×4 (06:52→21:22)
[2020-02-18 07:13] LABS: HEMOGLOBIN 11.5 GM/dL (10.7-15.3); MEAN CELL VOLUME 96.8 fl (80-96); PLATELET COUNT 229 K/MM3 (134-434); RBC 3.72 M/mm3 (3.60-5.2); RDW 16.6 % (11.6-15.6); WHITE BLOOD COUNT 11.2 K/mm3 (4.0-10.0)
[2020-02-18] MEDS: HEPARIN INFUSION - 25,000 UNITS/500 ML INFUS.BAG IVPB SCH ×3 (09:58→21:03)
[2020-02-18] MEDS: LISINOPRIL 10 MG TABLET PEG SCH (09:59)
[2020-02-18] MEDS: MUPIROCIN 2% TOPICAL OINTMENT FOR DECOLONIZATION NS SCH (09:59)
[2020-02-18] MEDS: METOPROLOL TARTRATE 50 MG TABLET (FP) PEG SCH ×2 (09:59→21:21)
--- NOTE | 2020-02-18 11:28 | PN ---
Progress Note, Physician Chief Complaint: Pulmonary embolism History of Present Illness: 85F w/ pmh of HFpEF, multi-vessel CAD + CABG, GERD, HLD, HTN, pAF (was on warfarin but stopped years prior), recent CVA (~6weeks prior at [facility], with residual Left-sided droop, LUE, LLE weakness; s/p mechanical thrombectomy); brought in from [facility] on [facility] due to concern of labored breathing with desaturation to 87% on RA then tachycardia to 130s. Upon arrival in the ED, pt was found to be tachy ~140s. CTA chest showed RLL subsegmental PE. She was started on heparin gtt. 5 hours later, she was found to be altered with "L sided facial droop" although, per daughter, pt reportedly had persistent facial since prior CVA [address] head showed possible SAH. Neurosurgery was consulted who evaluated head CT imaging; most likely subacute -chronic R hemispheric infarct w/ cortical-subcortical gyriform hyperdensity (reperfusion related hyperdensity), though underlying acute infarct cannot be ruled out; add itionally, hyperdensity is unlikely acute bleed. Repeat CT head showed no worsening of SAH - Current Medication List Current Medications: Active Medications Acetaminophen (Tylenol -) 1,000 mg PEG TID PRN PRN Reason: PAIN Atorvastatin Calcium (Lipitor -) 40 mg PEG HS [facility] Last Admin: 02/17/20 21:01 Dose: 40 mg Documented by: Chlorhexidine Gluconate (Hibiclens For Decolonization -) 1 applic TP HS [facility] Last Admin: 02/17/20 21:00 Dose: 1 applic Documented by: Diltiazem HCl (Cardizem -) 60 mg PEG Q6HPO [facility] Last Admin: 02/18/20 11:27 Dose: 60 mg Documented by: Heparin Sodium (Porcine) (Heparin -) 1,000 unit IVPUSH PRN PRN PRN Reason: Heparin Heparin Sodium (Porcine) (Heparin -) 5,000 unit IVPUSH PRN PRN PRN Reason: Heparin Last Admin: 02/17/20 18:24 Dose: 5,000 unit Documented by: Heparin Sodium/Dextrose (Heparin Infusion -) 25,000 units in 500 mls @ 20 mls/hr IVPB TITR [facility]; Protocol Last Admin: 02/18/20 09:58 Dose: 1,450 units/hr, 29 mls/hr Documented by: Insulin Aspart (Novolog Vial Sliding Scale -) 1 vial SQ ACHS [facility]; Protocol Last Admin: 02/18/20 11:27 Dose: Not Given Documented by: Ipratropium [place] (Atrovent 0.02% Nebulizer -) 1 amp NEB Q6H PRN PRN Reason: ASTHMA Latanoprost (Xalatan 0.005% Eye Drops -) 1 drop OU HS [facility] Last Admin: 02/17/20 21:01 Dose: 1 drop Documented by: Lisinopril (Prinivil) 10 mg PEG DAILY [facility] Last Admin: 02/18/20 09:59 Dose: 10 mg Documented by: Metoprolol Tartrate (Lopressor -) 100 mg PEG BID [facility] Last Admin: 02/18/20 09:59 Dose: 100 mg Documented by: Metoprolol Tartrate (Lopressor Injection -) 5 mg IVPUSH Q4H PRN PRN Reason: TACHYCARDIA Last Admin: 02/15/20 17:11 Dose: 5 mg Documented by: Mupirocin (Bactroban Ointment (For Decolonization) -) 1 applic NS BID [facility] Stop: 02/20/20 21:59 Last Admin: 02/18/20 09:59 Dose: 1 applic Documented by: Non-Formulary Medication (Saliva Substitute Comb. No.12 [Oral Relief Dry Mouth]) 30 ml MM Q6H PRN PRN Reason: <Dry mouth> - Objective Vital Signs: Vital Signs Temperature 98.2 F 02/17/20 23:00 Pulse Rate 80 02/18/20 08:00 Respiratory Rate 16 02/18/20 08:00 Blood Pressure 121/81 02/18/20 08:00 O2 Sat by Pulse Oximetry (%) 94 L 02/18/20 09:00 Constitutional: Yes: Well Nourished, No Distress, Calm Cardiovascular: Yes: Regular Rate and Rhythm Respiratory: Yes: Regular, CTA Bilaterally Gastrointestinal: Yes: Normal Bowel Sounds, Soft Genitourinary: Yes: Incontinence Musculoskeletal: Yes: Muscle Weakness Extremities: Yes: WNL Edema: No Peripheral Pulses WNL: Yes Neurological: Yes: Confusion ...Motor Strength: LUE (Flaccid) Labs: CBC, BMP 02/18/20 06:35 02/17/20 06:00 INR, PTT INR 1.13 (0.83-1.09) H 02/15/20 05:00 Problem List - Problems (1) Afib Problems reviewed: Yes Code(s): I48.91 - UNSPECIFIED ATRIAL FIBRILLATION (2) CVA (cerebral vascular accident) Problems reviewed: Yes Code(s): I63.9 - CEREBRAL INFARCTION, UNSPECIFIED (3) Subdural hematoma Assessment/Plan: -CT head:02/15/20:There is suggestion of a superimposed acute/subacute right middle cerebral artery infarct with edema and effacement of the cortical sulci. Cortical versus sulcal increased attenuation along the lateral margin of the right frontal, temporal and parietal lobe. Although this may be due to cortical reperfusion and late enhancement from the earlier administered intravenous contrast, significant subarachnoid hemorrhage should definitely be considered. Correlate clinically. Neurosurgery consult is recommended. A short-term follow- up CT scan of the head in 6 to 12 hours or an MRI of the brain is needed for further evaluation. -CT head: 02/15/20 later in the day showed No definite interval change - CT head::The findings are suggestive of contrast enhancement causing the increased Gyriform attenuation as described. Although the etiology of acute infarction which are a blood cannot be totally excluded Recommend additional short-term 12 to 18 hour follow-up -CT head 02/18/20:Interval significant decrease in the degree of gyral increased attenuation in the right frontal, temporal and parietal lobe, as described above. Continued close follow-up is recommended. -Neurosurgery consult appreciated Problems reviewed: Yes Code(s): S06.5X9A - TRAUM SUBDR HEM W LOC OF UNSP DURATION, INIT (4) Pulmonary embolus Assessment/Plan: -U/S BLLE doppler:02/15/20:Left lower extremity demonstrates occlusive thrombus in the distal superficial femoral vein, and popliteal vein. The left calf veins are patent. The right lower extremity demonstrates that the common and superficial femoral and popliteal veins are patent and demonstrate good compressibility. The calf veins are patent. There is no Kwok's cyst. -CT Chest :02/15/20:Filling defect within the right lower lobe segmental pulmonary artery that appears to be caused by a pulmonary embolus. -Continue heparin drip -transition to warfarin -Coumadin 5 mg po once today -monitor daily INR -D/C heparin heparin drip once INR>2.0 -Hematology consult -Pulmonary consult Problems reviewed: Yes Code(s): I26.99 - OTHER PULMONARY EMBOLISM WITHOUT ACUTE COR PULMONALE Qualifiers: Pulmonary embolism type: single subsegmental (without acute cor pulmonale) Qualified Code(s): I26.93 - Single subsegmental pulmonary embolism without acute cor pulmonale Assessment/Plan See problem list
--- NOTE | 2020-02-18 12:47 | PN ---
Progress Note (short form) - Note Progress Note: Awake and alert. NAD on NC O2. No change in Neuro exam. On IV Heparin drip. Intake & Output 02/16/20 02/17/20 02/17/20 02/18/20 00:59 00:59 23:59 23:59 Intake Total 1008 Balance 1008 Weight 149 lb Last Vital Signs Temp Pulse Resp BP Pulse Ox 98 F 80 16 126/94 94 L 02/18/20 11:42 02/18/20 11:42 02/18/20 11:42 02/18/20 11:42 02/18/20 09:00 Active Medications Acetaminophen (Tylenol -) 1,000 mg PEG TID PRN PRN Reason: PAIN Atorvastatin Calcium (Lipitor -) 40 mg PEG HS [facility] Last Admin: 02/17/20 21:01 Dose: 40 mg Documented by: Chlorhexidine Gluconate (Hibiclens For Decolonization -) 1 applic TP HS [facility] Last Admin: 02/17/20 21:00 Dose: 1 applic Documented by: Diltiazem HCl (Cardizem -) 60 mg PEG Q6HPO [facility] Last Admin: 02/18/20 11:27 Dose: 60 mg Documented by: Heparin Sodium (Porcine) (Heparin -) 1,000 unit IVPUSH PRN PRN PRN Reason: Heparin Heparin Sodium (Porcine) (Heparin -) 5,000 unit IVPUSH PRN PRN PRN Reason: Heparin Last Admin: 02/17/20 18:24 Dose: 5,000 unit Documented by: Heparin Sodium/Dextrose (Heparin Infusion -) 25,000 units in 500 mls @ 20 mls/hr IVPB TITR [facility]; Protocol Last Admin: 02/18/20 09:58 Dose: 1,450 units/hr, 29 mls/hr Documented by: Insulin Aspart (Novolog Vial Sliding Scale -) 1 vial SQ ACHS [facility]; Protocol Last Admin: 02/18/20 11:27 Dose: Not Given Documented by: Ipratropium [place] (Atrovent 0.02% Nebulizer -) 1 amp NEB Q6H PRN PRN Reason: ASTHMA Latanoprost (Xalatan 0.005% Eye Drops -) 1 drop OU HS [facility] Last Admin: 02/17/20 21:01 Dose: 1 drop Documented by: Lisinopril (Prinivil) 10 mg PEG DAILY [facility] Last Admin: 02/18/20 09:59 Dose: 10 mg Documented by: Metoprolol Tartrate (Lopressor -) 100 mg PEG BID [facility] Last Admin: 02/18/20 09:59 Dose: 100 mg Documented by: Metoprolol Tartrate (Lopressor Injection -) 5 mg IVPUSH Q4H PRN PRN Reason: TACHYCARDIA Last Admin: 02/15/20 17:11 Dose: 5 mg Documented by: Mupirocin (Bactroban Ointment (For Decolonization) -) 1 applic NS BID [facility] Stop: 02/20/20 21:59 Last Admin: 02/18/20 09:59 Dose: 1 applic Documented by: Non-Formulary Medication (Saliva Substitute Comb. No.12 [Oral Relief Dry Mouth]) 30 ml MM Q6H PRN PRN Reason: <Dry mouth> Gen: Awake, NAD HEENT: EOMI PULM: clear CV: irreg. ELANA ABd; soft EXt; dense L hemiplegia, contracted r hand Neuro:follows simple commands Laboratory Results - last 24 hr 02/17/20 02/17/20 02/17/20 16:25 18:19 20:52 WBC RBC Hgb Hct MCV MCH MCHC RDW Plt Count MPV PTT (Actin FS) 39.1 H POC Glucometer 194 208 02/17/20 02/18/20 02/18/20 23:35 06:30 06:35 WBC 11.2 H RBC 3.72 Hgb 11.5 Hct 36.0 MCV 96.8 H MCH 31.0 MCHC 32.0 RDW 16.6 H Plt Count 229 D MPV 10.0 PTT (Actin FS) 40.2 H POC Glucometer 153 02/18/20 02/18/20 06:35 10:28 WBC RBC Hgb Hct MCV MCH MCHC RDW Plt Count MPV PTT (Actin FS) > 400.0 H POC Glucometer 180 Subacute-chronic CVA RLL segmental PE Multi-vessel CAD CABG GERD HLD HTN pAFib (was on warafarin but stopped years prior) Recent CVA(~6weeks prior at [facility], with residual Left-sided droop, LUE, LLE weakness; sp mechanical thrombectomy) IV Heparin per protocol Normal transfusion thresholds Follow Neuro exam Supplemental O2 as needed Rate control Glycemic control Monitor off ABX Enteral feeds Cardiac Telemetry monitoring Dr Panda
--- NOTE | 2020-02-18 12:50 | CONSULT ---
Consultation: REQUESTING PROVIDER: Tiago Orta NP CONSULT REQUEST: We have been asked to medically evaluate this patient for PE. HISTORY OF PRESENT ILLNESS: 85F w/ pmh of HFpEF, multi-vessel CAD + CABG, GERD, HLD, HTN, pAF (was on warfarin but stopped years prior), recent CVA (~6weeks prior at [facility], with residual Left-sided droop, LUE, LLE weakness; s/p mechanical thrombectomy); brought in from [facility] due to concern of labored breathing with desaturation to 87% on RA then tachycardia to 130s. Pt is a poor historian; hx taken per EMR. Upon arrival in the ED, pt was found to be tachy ~140s. CTA chest showed RLL subsegmental PE. She was started on heparin gtt. 5 hours later, she was found to be altered with "L sided facial droop" although, per daughter, pt reportedly had persistent facial since prior CVA [address] head showed possible SAH. Neurosurg was consulted who evaluated head CT imaging; most likely subacute -chronic R hemispheric infarct w/ cortical- subcortical gyriform hyperdensity (reperfusion related hyperdensity), though underlying acute infarct cannot be ruled out; additionally, hyperdensity is unlikely acute bleed. Recommendation for tx of PE/DVT was advised; neurosurgical intervention was not indicated. Hematology was consulted for evaluation of PE. PMhx: As per HPI PSh: mechanical thrombectomy, multi-vessel CABG FHx: Denies Social: Denies tobacco, alcohol, rec drug use REVIEW OF SYSTEMS: Unable to obtain PHYSICAL EXAMINATION Vital Signs - 24 hr 02/17/20 02/17/20 02/17/20 16:00 18:00 19:54 Temperature 98.0 F Pulse Rate 89 101 H Respiratory 19 20 Rate Blood Pressure 119/54 L 149/79 O2 Sat by Pulse 95 93 L 93 L Oximetry (%) 02/17/20 02/17/20 02/17/20 19:56 21:00 23:00 Temperature 98.1 F 98.2 F Pulse Rate 102 H 82 Respiratory 16 Rate Blood Pressure 149/79 127/59 L O2 Sat by Pulse 95 96 96 Oximetry (%) 02/18/20 02/18/20 02/18/20 00:00 04:00 08:00 Temperature Pulse Rate 80 80 80 Respiratory 12 14 16 Rate Blood Pressure 127/59 L 140/72 121/81 O2 Sat by Pulse 96 Oximetry (%) 02/18/20 02/18/20 09:00 11:42 Temperature 98 F Pulse Rate 80 Respiratory 16 Rate Blood Pressure 126/94 O2 Sat by Pulse 94 L Oximetry (%) GENERAL: Awake, alert, no acute distress. Oriented to name, month. 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 Love age HEAD: Normal with no signs of trauma. EYES: extraocular movements intact, sclera anicteric, conjunctiva clear. EARS, NOSE, THROAT: Ears normal, nares patent, oropharynx clear without exudate s. Moist mucous membranes. NECK: Normal range of motion, supple without lymphadenopathy, JVD, or masses. LUNGS: Breath sounds equal, clear to auscultation bilaterally. No wheezes, and no crackles. Breathing comfortably on 2L RA HEART: irregularly irregulary, HR up to 110s. Normal S1 and S2 without murmur, rub or gallop. ABDOMEN: Peg tube in place without surrounding erythema. Soft, nontender, not distended, No guarding, no rebound, no masses. MUSCULOSKELETAL: LUE contracture. No bony deformities or tenderness. No CVA tenderness. UPPER EXTREMITIES: 2+ pulses, warm, well-perfused. No cyanosis. No clubbing. Cap refill <2 seconds. No peripheral edema. LOWER EXTREMITIES: 2+ pulses, warm, well-perfused. No calf tenderness. No peripheral edema. NEUROLOGICAL: Cranial nerves II-XII intact. Left-sided facial droop. Flaccid LUE, with hand closed and slightly contracted. LLE with no active ROM. Short stuttering speech SKIN: Warm, dry, normal turgor, no rashes or lesions noted. Laboratory Results - last 24 hr 02/17/20 02/17/20 02/17/20 16:25 18:19 20:52 WBC RBC Hgb Hct MCV MCH MCHC RDW Plt Count MPV PTT (Actin FS) 39.1 H POC Glucometer 194 208 02/17/20 02/18/20 02/18/20 23:35 06:30 06:35 WBC 11.2 H RBC 3.72 Hgb 11.5 Hct 36.0 MCV 96.8 H MCH 31.0 MCHC 32.0 RDW 16.6 H Plt Count 229 D MPV 10.0 PTT (Actin FS) 40.2 H POC Glucometer 153 02/18/20 02/18/20 06:35 10:28 WBC RBC Hgb Hct MCV MCH MCHC RDW Plt Count MPV PTT (Actin FS) > 400.0 H POC Glucometer 180 Active Medications Generic Name Dose Route Start Last Admin Trade Name Freq PRN Reason Stop Dose Admin Acetaminophen 1,000 mg 02/15/20 16:17 Tylenol - PEG TID PRN PAIN Atorvastatin Calcium 40 mg 02/15/20 22:00 02/17/20 21:01 Lipitor - PEG 40 mg HS [facility] Administration Chlorhexidine Gluconate 1 applic 02/15/20 22:00 02/17/20 21:00 Hibiclens For Decolonization - TP 1 applic HS [facility] Administration Diltiazem HCl 60 mg 02/15/20 18:00 02/18/20 11:27 Cardizem - PEG 60 mg Q6HPO [facility] Administration Heparin Sodium (Porcine) 1,000 unit 02/16/20 09:15 Heparin - IVPUSH PRN PRN Heparin Heparin Sodium (Porcine) 5,000 unit 02/16/20 09:15 02/17/20 18:24 Heparin - IVPUSH 5,000 unit PRN PRN Administration Heparin Heparin Sodium/Dextrose 25,000 units in 500 mls @ 20 mls/hr 02/16/20 09:15 02/18/20 09:58 Heparin Infusion - IVPB 1,450 units/hr TITR [facility] 29 mls/hr Administration Protocol 1,000 UNITS/HR Insulin Aspart 1 vial 02/15/20 16:30 02/18/20 11:27 Novolog Vial Sliding Scale - SQ Not Given ACHS [facility] Protocol Ipratropium [place] 1 amp 02/16/20 20:33 Atrovent 0.02% Nebulizer - NEB Q6H PRN ASTHMA Latanoprost 1 drop 02/15/20 22:00 02/17/20 21:01 Xalatan 0.005% Eye Drops - OU 1 drop HS [facility] Administration Lisinopril 10 mg 02/16/20 10:00 02/18/20 09:59 Prinivil PEG 10 mg DAILY [facility] Administration Metoprolol Tartrate 100 mg 02/15/20 22:00 02/18/20 09:59 Lopressor - PEG 100 mg BID [facility] Administration Metoprolol Tartrate 5 mg 02/15/20 16:22 02/15/20 17:11 Lopressor Injection - IVPUSH 5 mg Q4H PRN Administration TACHYCARDIA Mupirocin 1 applic 02/15/20 22:00 02/18/20 09:59 Bactroban Ointment (For Decolonization) - NS 02/20/20 21:59 1 applic BID [facility] Administration Non-Formulary Medication 30 ml 02/15/20 16:17 Saliva Substitute Comb. No.12 [Oral Relief Dry Mouth] MM Q6H PRN <Dry mouth> ASSESSMENT/PLAN: 85F w/ pmh of HFpEF, multi-vessel CAD + CABG, GERD, HLD, HTN, pAF (was on warfarin but stopped years prior), recent CVA (~6weeks prior at [facility], with residual Left-sided droop, LUE, LLE weakness; s/p mechanical thrombectomy); brought in from [facility] due to concern of labored breathing with desaturation to 87% on RA then tachycardia to 130s. Currently treated for PE. #RLL Subsegmental PE/LLE DVT, likely provoked -CTA chest +RLL subsegmental PE, LE duplex +occlusive thrombus in distal superficial fem vein and pop vein -Cont heparin gtt. Would benefit from continuing with AC that has reversal agent like warfarin and continue AC for 3 months. Monitor INR levels as outpatient. -Per neurosurgical evaluation, low suspicion for possible IC hemorrhage given CT findings; recommend to treat PE/DVT -Outpatient heme follow up Dispo: We will continue to follow the patient. Thank you for this consultative opportunity. Visit type - Medication Review Med list reviewed for High Risk Meds patients 65 and older: Yes - Emergency Visit Emergency Visit: Yes ED Registration Date: 02/15/20 Care time: The patient presented to the Emergency Department on the above date and was hospitalized for further evaluation of their emergent condition. - New Patient This patient is new to me today: No - Critical Care Critical Care patient: No ATTENDING PHYSICIAN STATEMENT I saw and evaluated the patient. I reviewed the resident's note and discussed the case with the resident. I agree with the resident's findings and plan as documented. SUBJECTIVE: OBJECTIVE: ASSESSMENT AND PLAN:
[2020-02-18] MEDS ORDERED: HEPARIN NA (PORCINE) 5,000 UNITS/ML 1ML VIAL IVPUSH PRN ×4 (12:55)
[2020-02-18] MEDS ORDERED: METOPROLOL TARTRATE 5 MG/5 ML VIAL IVPUSH PRN (12:55)
[2020-02-18] MEDS ORDERED: IPRATROPIUM BR 0.02% 0.5 MG/2.5 ML VIAL.NEB. NEB PRN (12:55)
--- NOTE | 2020-02-18 15:52 | PN ---
Teaching Attending Note Name of Resident: Jossie Noguera ATTENDING PHYSICIAN STATEMENT I saw and evaluated the patient. I reviewed the resident's note and discussed the case with the resident. I agree with the resident's findings and plan as documented. 85yF with PMHx of Afib not on AC (unclear), DM, recent CVA with residual left sided weakness presents from [place] for SOB found to have right sided PE and left lower extremity DVT. Was started on heparin gtt. CT head was concerning for possible bleed although changes thought to be more so from residual CVA. She was evaluated by Neurosurg who agrees that this is less likely ICH. Agree with transitioning her to a easily reversible oral agent, like coumadin as INR levels can be closely monitored in the outpatient setting.
[2020-02-18] MEDS ORDERED: WARFARIN NA 5 MG TABLET PO ONE (18:00)
--- NOTE | 2020-02-18 20:21 | PN ---
Progress Note (short form) - Note Progress Note: NEUROLOGY PROGRESS: Events reviewed. CT's reviewed. Patient examined. On Heparin for PE and presumed DVT s/p CVA Today PTT > 400. CT's reviewed: Well-demarcated right MCA territory infarct with markedly diminished heterogenous hyperintensity (as predicted). MELANIA: No clinical evidence of bleeding NEURO: No gaze preference. Awake, alert, Confused? Follows rare simple commands. Gibberish speech. Dense left homonomous hemianopsia Left facial Depressed gag Left hemiplegia, left Babinski. IMP: Severe right cerebral dysfunction with left hemiplegia and ?aphasia (Is patient left-handed?) Now s/p PE but PTT on Heparin > 400. SUGGEST: Hold heparin. Follow PTT Investigate for DVT with venous studies of the legs and consider IVC filter if +. Bedside PT. Speech and swallowing eval and Rx. Thank you very much, Alphonso Douglass MD
[2020-02-18] MEDS: ATORVASTATIN CA 40 MG TABLET (FP) PEG SCH (21:21)
[2020-02-18] MEDS: LATANOPROST 0.005% OPHTH SOLN 2.5ML BOTTLE OU SCH (21:38)
[2020-02-19] MEDS: dilTIAZem HCL 60 MG TABLET PEG SCH ×4 (00:29→18:14)
[2020-02-19] MEDS: HEPARIN INFUSION - 25,000 UNITS/500 ML INFUS.BAG IVPB SCH (03:48)
[2020-02-19] MEDS: INSULIN SLIDING SCALE (NOVOLOG) 1 VIAL SQ SCH ×4 (06:19→21:38)
[2020-02-19 06:29] LABS: HEMATOCRIT 33.2 % (32.4-45.2); HEMOGLOBIN 10.8 GM/dL (10.7-15.3); MCH 31.3 pg (25.7-33.7); MCHC 32.5 g/dl (32.0-36.0); MEAN CELL VOLUME 96.5 fl (80-96); MEAN PLT VOLUME 9.3 fl (7.5-11.1); PLATELET COUNT 270 K/MM3 (134-434); RBC 3.44 M/mm3 (3.60-5.2)
--- NOTE | 2020-02-19 06:56 | PN ---
Progress Note, Physician History of Present Illness: pulmonary awake,confused,-resp distress - Current Medication List Current Medications: Active Medications Acetaminophen (Tylenol -) 1,000 mg PEG TID PRN PRN Reason: PAIN 1-3 Atorvastatin Calcium (Lipitor -) 40 mg PEG HS [facility] Last Admin: 02/18/20 21:21 Dose: 40 mg Documented by: Diltiazem HCl (Cardizem -) 60 mg PEG Q6HPO [facility] Last Admin: 02/19/20 06:19 Dose: 60 mg Documented by: Heparin Sodium (Porcine) (Heparin -) 1,000 unit IVPUSH PRN PRN PRN Reason: Heparin Heparin Sodium (Porcine) (Heparin -) 5,000 unit IVPUSH PRN PRN PRN Reason: Heparin Heparin Sodium/Dextrose (Heparin Infusion -) 25,000 units in 500 mls @ 20 mls/hr IVPB TITR [facility]; Protocol Last Admin: 02/19/20 03:48 Dose: 550 units/hr, 11 mls/hr Documented by: Insulin Aspart (Novolog Vial Sliding Scale -) 1 vial SQ [facility]; Protocol Last Admin: 02/19/20 06:19 Dose: 2 units Documented by: Ipratropium [place] (Atrovent 0.02% Nebulizer -) 1 amp NEB Q6H PRN PRN Reason: ASTHMA Latanoprost (Xalatan 0.005% Eye Drops -) 1 drop OU HS [facility] Last Admin: 02/18/20 21:38 Dose: 1 drop Documented by: Lisinopril (Prinivil) 10 mg PEG DAILY [facility] Metoprolol Tartrate (Lopressor Injection -) 5 mg IVPUSH Q4H PRN PRN Reason: TACHYCARDIA Metoprolol Tartrate (Lopressor -) 100 mg PEG BID [facility] Last Admin: 02/18/20 21:21 Dose: 100 mg Documented by: Non-Formulary Medication (Saliva Substitute Comb. No.12 [Oral Relief Dry Mouth]) 30 ml MM Q6H PRN PRN Reason: <Dry mouth> - Objective Vital Signs: Vital Signs Temperature 98.6 F 02/19/20 02:00 Pulse Rate 94 H 02/19/20 02:00 Respiratory Rate 18 02/19/20 02:00 Blood Pressure 130/71 02/19/20 02:00 O2 Sat by Pulse Oximetry (%) 95 02/18/20 22:00 Constitutional: Yes: Well Nourished, Calm Eyes: Yes: WNL HENT: Yes: WNL Neck: Yes: WNL Cardiovascular: Yes: Pulse Irregular, S1, S2 Respiratory: Yes: Diminished, Other (poor inspiratory effort) Gastrointestinal: Yes: Normal Bowel Sounds, Soft Extremities: Yes: WNL Edema: No Labs: INR, PTT INR 1.30 (0.83-1.09) H 02/19/20 05:58 Assessment/Plan IMP Subacute-chronic CVA RLL segmental PE Multi-vessel CAD CABG GERD HLD HTN pAFib (was on warafarin but stopped years prior) Recent CVA(~6weeks prior at [facility], with residual Left-sided droop, LUE, LLE weakness; sp mechanical thrombectomy) IV Heparin per protocol Normal transfusion thresholds Follow Neuro exam Supplemental O2 as needed Rate control Glycemic control Monitor off ABX Enteral feeds DR BLANCHARD
[2020-02-19 07:26] LABS: ALBUMIN 2.5 g/dl (3.4-5.0); BILIRUBIN,TOTAL 0.4 mg/dL (0.2-1); BLOOD UREA NITROGEN 16.5 mg/dL (7-18); CALCIUM 8.7 mg/dL (8.5-10.1); CREATININE 0.8 mg/dL (0.55-1.3); POTASSIUM 3.5 mmol/L (3.5-5.1); TOT PROT 5.7 g/dl (6.4-8.2)
[2020-02-19] MEDS ORDERED: LYTES/YERBA SANTA 60 ML SPRAY MM PRN (09:14)
[2020-02-19] MEDS: METOPROLOL TARTRATE 50 MG TABLET (FP) PEG SCH ×2 (09:17→21:38)
[2020-02-19] MEDS: LISINOPRIL 10 MG TABLET PEG SCH (09:17)
--- NOTE | 2020-02-19 11:38 | PN ---
Progress Note, Physician Chief Complaint: Pulmonary embolism History of Present Illness: 85F w/ pmh of HFpEF, multi-vessel CAD + CABG, GERD, HLD, HTN, pAF (was on warfarin but stopped years prior), recent CVA (~6weeks prior at [facility], with residual Left-sided droop, LUE, LLE weakness; s/p mechanical thrombectomy); brought in from [facility] on [facility] due to concern of labored breathing with desaturation to 87% on RA then tachycardia to 130s. Upon arrival in the ED, pt was found to be tachy ~140s. CTA chest showed RLL subsegmental PE. She was started on heparin gtt. 5 hours later, she was found to be altered with "L sided facial droop" although, per daughter, pt reportedly had persistent facial since prior CVA [address] head showed possible SAH. Neurosurgery was consulted who evaluated head CT imaging; most likely subacute -chronic R hemispheric infarct w/ cortical-subcortical gyriform hyperdensity (reperfusion related hyperdensity), though underlying acute infarct cannot be ruled out; add itionally, hyperdensity is unlikely acute bleed. Repeat CT head showed no worsening of SAH - Current Medication List Current Medications: Active Medications Acetaminophen (Tylenol -) 1,000 mg PEG TID PRN PRN Reason: PAIN 1-3 Atorvastatin Calcium (Lipitor -) 40 mg PEG HS [facility] Last Admin: 02/18/20 21:21 Dose: 40 mg Documented by: Diltiazem HCl (Cardizem -) 60 mg PEG Q6HPO [facility] Last Admin: 02/19/20 06:19 Dose: 60 mg Documented by: Enoxaparin Sodium (Lovenox -) 70 mg SQ Q12H [facility] Insulin Aspart (Novolog Vial Sliding Scale -) 1 vial SQ ACHS [facility]; Protocol Last Admin: 02/19/20 06:19 Dose: 2 units Documented by: Ipratropium [place] (Atrovent 0.02% Nebulizer -) 1 amp NEB Q6H PRN PRN Reason: ASTHMA Latanoprost (Xalatan 0.005% Eye Drops -) 1 drop OU HS [facility] Last Admin: 02/18/20 21:38 Dose: 1 drop Documented by: Lisinopril (Prinivil) 10 mg PEG DAILY [facility] Last Admin: 02/19/20 09:17 Dose: 10 mg Documented by: Metoprolol Tartrate (Lopressor Injection -) 5 mg IVPUSH Q4H PRN PRN Reason: TACHYCARDIA Metoprolol Tartrate (Lopressor -) 100 mg PEG BID [facility] Last Admin: 02/19/20 09:17 Dose: 100 mg Documented by: Saliva Substitute (Mouthkote Solution) 1 applic MM Q6H PRN PRN Reason: <Dry mouth> Warfarin Sodium (Coumadin -) 5 mg PO DAILY@1800 [facility] - Objective Vital Signs: Vital Signs Temperature 98.8 F 02/19/20 10:00 Pulse Rate 93 H 02/19/20 10:00 Respiratory Rate 20 02/19/20 10:00 Blood Pressure 127/83 02/19/20 10:00 O2 Sat by Pulse Oximetry (%) 96 02/19/20 10:00 Constitutional: Yes: Well Nourished, No Distress, Calm Cardiovascular: Yes: Regular Rate and Rhythm Respiratory: Yes: Regular, CTA Bilaterally Gastrointestinal: Yes: Normal Bowel Sounds, Soft Genitourinary: Yes: Incontinence Musculoskeletal: Yes: Muscle Weakness Extremities: Yes: WNL Edema: No Peripheral Pulses WNL: Yes Neurological: Yes: Alert, Confusion Labs: CBC, BMP 02/19/20 05:58 02/19/20 05:58 INR, PTT INR Cancelled 02/19/20 05:58 Problem List - Problems (1) Afib Assessment/Plan: -warfarin Problems reviewed: Yes Code(s): I48.91 - UNSPECIFIED ATRIAL FIBRILLATION (2) CVA (cerebral vascular accident) Problems reviewed: Yes Code(s): I63.9 - CEREBRAL INFARCTION, UNSPECIFIED (3) Subdural hematoma Assessment/Plan: -CT head:02/15/20:There is suggestion of a superimposed acute/subacute right middle cerebral artery infarct with edema and effacement of the cortical sulci. Cortical versus sulcal increased attenuation along the lateral margin of the right frontal, temporal and parietal lobe. Although this may be due to cortical reperfusion and late enhancement from the earlier administered intravenous contrast, significant subarachnoid hemorrhage should definitely be considered. Correlate clinically. Neurosurgery consult is recommended. A short-term follow- up CT scan of the head in 6 to 12 hours or an MRI of the brain is needed for further evaluation. -CT head: 02/15/20 later in the day showed No definite interval change - CT head::The findings are suggestive of contrast enhancement causing the increased Gyriform attenuation as described. Although the etiology of acute infarction which are a blood cannot be totally excluded Recommend additional sh ort-term 12 to 18 hour follow-up -CT head 02/18/20:Interval significant decrease in the degree of gyral increased attenuation in the right frontal, temporal and parietal lobe, as described above. Continued close follow-up is recommended. -Neurosurgery consult appreciated Problems reviewed: Yes Code(s): S06.5X9A - TRAUM SUBDR HEM W LOC OF UNSP DURATION, INIT (4) Pulmonary embolus Assessment/Plan: -U/S BLLE doppler:02/15/20:Left lower extremity demonstrates occlusive thrombus in the distal superficial femoral vein, and popliteal vein. The left calf veins are patent. The right lower extremity demonstrates that the common and superficial femoral and popliteal veins are patent and demonstrate good compressibility. The calf veins are patent. There is no Kwok's cyst. -CT Chest :02/15/20:Filling defect within the right lower lobe segmental pulmonary artery that appears to be caused by a pulmonary embolus. -Change heparin drip to lovenox -Started on warfarin -Monitor daily INR -D/C heparin drip once INR>2.0 -Hematology consult appreciated -Pulmonary consult -Echo:02/15/20:LVEF 55-60%, RV mildly dilated, LA mildly dilated, mild mitral regurg, mild to moderate mitral annular calcification, RVSP elevated at 30-40 mm Hg, moderate TR, mild aortic sclerosis Problems reviewed: Yes Code(s): I26.99 - OTHER PULMONARY EMBOLISM WITHOUT ACUTE COR PULMONALE Qualifiers: Pulmonary embolism type: single subsegmental (without acute cor pulmonale) Qualified Code(s): I26.93 - Single subsegmental pulmonary embolism without acute cor pulmonale Assessment/Plan See problem list
[2020-02-19] MEDS: ENOXAPARIN NA (PORCINE) 80 MG/0.8 ML DISP.SYRIN SQ SCH ×2 (12:08→21:33)
[2020-02-19 12:57] LABS: INR 1.18 (0.83-1.09); PROTHROMBIN TIME (PATIENT) 14.4 SEC (9.7-13.0)
[2020-02-19 13:13] LABS: ACTIVATED PTT 130.1 SECONDS (25.2-36.5)
[2020-02-19] MEDS ORDERED: FLU VACCINE (FLULAVAL) PF 60 MCG/0.5 ML SYRINGE 2020-2021 IM ONE (16:48)
[2020-02-19] MEDS ORDERED: PNEUMOC 13-VAL CONJ-DIP CRM/PF 0.5 ML DISP.SYRIN IM ONE (16:49)
[2020-02-19] MEDS ORDERED: WARFARIN NA 5 MG TABLET PO SCH (18:00)
[2020-02-19] MEDS ORDERED: WARFARIN NA 5 MG TABLET PEG SCH (20:36)
[2020-02-19] MEDS: ATORVASTATIN CA 40 MG TABLET (FP) PEG SCH (21:38)
[2020-02-19] MEDS: LATANOPROST 0.005% OPHTH SOLN 2.5ML BOTTLE OU SCH ×2 (21:39→22:58)
[2020-02-19] MEDS ORDERED: PT OWN MED DRAWER 7, Y5N ONE (21:52)
[2020-02-20] MEDS: dilTIAZem HCL 60 MG TABLET PEG SCH ×4 (00:57→17:43)
[2020-02-20] MEDS: INSULIN SLIDING SCALE (NOVOLOG) 1 VIAL SQ SCH ×4 (06:25→21:49)
[2020-02-20] MEDS: metFORMIN HCL 500 MG TABLET (FP) PEG SCH ×2 (06:25→17:43)
[2020-02-20 06:55] LABS: HEMATOCRIT 34.7 % (32.4-45.2); HEMOGLOBIN 11.1 GM/dL (10.7-15.3); MCH 31.3 pg (25.7-33.7); MEAN CELL VOLUME 97.7 fl (80-96); MEAN PLT VOLUME 9.5 fl (7.5-11.1); PLATELET COUNT 251 K/MM3 (134-434); RBC 3.55 M/mm3 (3.60-5.2); RDW 16.5 % (11.6-15.6); WHITE BLOOD COUNT 8.7 K/mm3 (4.0-10.0)
[2020-02-20 07:05] LABS: INR 1.28 (0.83-1.09); PROTHROMBIN TIME (PATIENT) 15.6 SEC (9.7-13.0)
--- NOTE | 2020-02-20 07:05 | PN ---
Progress Note, Physician History of Present Illness: pulmonary alert,comfortable,-sob - Current Medication List Current Medications: Active Medications Acetaminophen (Tylenol -) 1,000 mg PEG TID PRN PRN Reason: PAIN 1-3 Atorvastatin Calcium (Lipitor -) 40 mg PEG HS [facility] Last Admin: 02/19/20 21:38 Dose: 40 mg Documented by: Diltiazem HCl (Cardizem -) 60 mg PEG Q6HPO [facility] Last Admin: 02/20/20 05:45 Dose: 60 mg Documented by: Enoxaparin Sodium (Lovenox -) 70 mg SQ BID [facility] Last Admin: 02/19/20 21:33 Dose: 70 mg Documented by: Insulin Aspart (Novolog Vial Sliding Scale -) 1 vial SQ [facility]; Protocol Last Admin: 02/20/20 06:25 Dose: 2 units Documented by: Ipratropium [place] (Atrovent 0.02% Nebulizer -) 1 amp NEB Q6H PRN PRN Reason: ASTHMA Latanoprost (Xalatan 0.005% Eye Drops -) 1 drop OU [facility] Last Admin: 02/19/20 22:58 Dose: 1 drop Documented by: Lisinopril (Prinivil) 10 mg PEG DAILY [facility] Last Admin: 02/19/20 09:17 Dose: 10 mg Documented by: Metformin HCl (Glucophage -) 500 mg PEG BID@0700,1630 [facility] Last Admin: 02/20/20 06:25 Dose: 500 mg Documented by: Metoprolol Tartrate (Lopressor Injection -) 5 mg IVPUSH Q4H PRN PRN Reason: TACHYCARDIA Metoprolol Tartrate (Lopressor -) 100 mg PEG BID [facility] Last Admin: 02/19/20 21:38 Dose: 100 mg Documented by: Saliva Substitute (Mouthkote Solution) 1 applic MM Q6H PRN PRN Reason: <Dry mouth> Warfarin Sodium (Coumadin -) 5 mg PEG DAILY@1800 [facility] - Objective Vital Signs: Vital Signs Temperature 98.3 F 02/20/20 06:00 Pulse Rate 98 H 02/20/20 06:00 Respiratory Rate 18 02/20/20 06:00 Blood Pressure 127/76 02/20/20 06:00 O2 Sat by Pulse Oximetry (%) 98 02/20/20 06:00 Constitutional: Yes: Well Nourished, Calm Eyes: Yes: WNL HENT: Yes: WNL Neck: Yes: WNL Cardiovascular: Yes: Regular Rate and Rhythm, S1, S2 Respiratory: Yes: CTA Bilaterally Gastrointestinal: Yes: Normal Bowel Sounds, Soft Extremities: Yes: WNL Edema: No Labs: Assessment/Plan IMP Subacute-chronic CVA RLL segmental PE Multi-vessel CAD CABG GERD HLD HTN pAFib (was on warafarin but stopped years prior) Recent CVA(~6weeks prior at [facility], with residual Left-sided droop, L UE, LLE weakness; sp mechanical thrombectomy) IV Heparin per protocol Normal transfusion thresholds Follow Neuro exam Supplemental O2 as needed Rate control Glycemic control Monitor off ABX Enteral feeds DR BLANCHARD
[2020-02-20 08:15] LABS: ALBUMIN 2.6 g/dl (3.4-5.0); BILIRUBIN,TOTAL 0.4 mg/dL (0.2-1); BLOOD UREA NITROGEN 18.9 mg/dL (7-18); CALCIUM 8.8 mg/dL (8.5-10.1); CREATININE 0.8 mg/dL (0.55-1.3); POTASSIUM 4.1 mmol/L (3.5-5.1); TOT PROT 5.9 g/dl (6.4-8.2)
[2020-02-20] MEDS: METOPROLOL TARTRATE 50 MG TABLET (FP) PEG SCH ×2 (09:52→21:54)
[2020-02-20] MEDS: LISINOPRIL 10 MG TABLET PEG SCH (09:53)
[2020-02-20] MEDS: ENOXAPARIN NA (PORCINE) 80 MG/0.8 ML DISP.SYRIN SQ SCH ×2 (09:53→21:49)
--- NOTE | 2020-02-20 11:54 | PN ---
Progress Note, Physician Chief Complaint: Pulmonary embolism History of Present Illness: 85F w/ pmh of HFpEF, multi-vessel CAD + CABG, GERD, HLD, HTN, pAF (was on warfarin but stopped years prior), recent CVA (~6weeks prior at [facility], with residual Left-sided droop, LUE, LLE weakness; s/p mechanical thrombectomy); brought in from [facility] on [facility] due to concern of labored breathing with desaturation to 87% on RA then tachycardia to 130s. Upon arrival in the ED, pt was found to be tachy ~140s. CTA chest showed RLL subsegmental PE. She was started on heparin gtt. 5 hours later, she was found to be altered with "L sided facial droop" although, per daughter, pt reportedly had persistent facial since prior CVA [address] head showed possible SAH. Neurosurgery was consulted who evaluated head CT imaging; most likely subacute -chronic R hemispheric infarct w/ cortical-subcortical gyriform hyperdensity (reperfusion related hyperdensity), though underlying acute infarct cannot be ruled out; add itionally, hyperdensity is unlikely acute bleed. Repeat CT head showed no worsening of SAH Currently awake and alert, orient to place, diagnosis, name and president - Current Medication List Current Medications: Active Medications Acetaminophen (Tylenol -) 1,000 mg PEG TID PRN PRN Reason: PAIN 1-3 Atorvastatin Calcium (Lipitor -) 40 mg PEG HS [facility] Last Admin: 02/19/20 21:38 Dose: 40 mg Documented by: Diltiazem HCl (Cardizem -) 60 mg PEG Q6HPO [facility] Last Admin: 02/20/20 05:45 Dose: 60 mg Documented by: Enoxaparin Sodium (Lovenox -) 70 mg SQ BID [facility] Last Admin: 02/20/20 09:53 Dose: 70 mg Documented by: Insulin Aspart (Novolog Vial Sliding Scale -) 1 vial SQ [facility]; Protocol Last Admin: 02/20/20 06:25 Dose: 2 units Documented by: Ipratropium [place] (Atrovent 0.02% Nebulizer -) 1 amp NEB Q6H PRN PRN Reason: ASTHMA Latanoprost (Xalatan 0.005% Eye Drops -) 1 drop OU [facility] Last Admin: 02/19/20 22:58 Dose: 1 drop Documented by: Lisinopril (Prinivil) 10 mg PEG DAILY [facility] Last Admin: 02/20/20 09:53 Dose: 10 mg Documented by: Metformin HCl (Glucophage -) 500 mg PEG BID@0700,1630 [facility] Last Admin: 02/20/20 06:25 Dose: 500 mg Documented by: Metoprolol Tartrate (Lopressor Injection -) 5 mg IVPUSH Q4H PRN PRN Reason: TACHYCARDIA Metoprolol Tartrate (Lopressor -) 100 mg PEG BID [facility] Last Admin: 02/20/20 09:52 Dose: 100 mg Documented by: Saliva Substitute (Mouthkote Solution) 1 applic MM Q6H PRN PRN Reason: <Dry mouth> Warfarin Sodium (Coumadin -) 5 mg PEG DAILY@1800 [facility] - Objective Vital Signs: Vital Signs Temperature 98.4 F 02/20/20 08:54 Pulse Rate 99 H 02/20/20 08:54 Respiratory Rate 20 02/20/20 08:54 Blood Pressure 117/74 02/20/20 08:54 O2 Sat by Pulse Oximetry (%) 100 02/20/20 08:54 Constitutional: Yes: Well Nourished, No Distress, Calm Cardiovascular: Yes: Regular Rate and Rhythm Respiratory: Yes: Regular, CTA Bilaterally Gastrointestinal: Yes: Normal Bowel Sounds, Soft Genitourinary: Yes: Incontinence Musculoskeletal: Yes: Muscle Weakness Edema: No Peripheral Pulses WNL: Yes Neurological: Yes: Alert, Oriented Psychiatric: Yes: Alert, Oriented Labs: CBC, BMP 02/20/20 06:20 02/20/20 06:20 INR, PTT INR 1.28 (0.83-1.09) H 02/20/20 06:20 Problem List - Problems (1) Afib Assessment/Plan: -warfarin 10 mg once today -Warfarin 5 mg po daily otherwise -Daily INR while in the hospital -Lovenox until therapeutic Problems reviewed: Yes Code(s): I48.91 - UNSPECIFIED ATRIAL FIBRILLATION (2) CVA (cerebral vascular accident) Problems reviewed: Yes Code(s): I63.9 - CEREBRAL INFARCTION, UNSPECIFIED (3) Subdural hematoma Assessment/Plan: -CT head:02/15/20:There is suggestion of a superimposed acute/subacute right middle cerebral artery infarct with edema and effacement of the cortical sulci. Cortical versus sulcal increased attenuation along the lateral margin of the right frontal, temporal and parietal lobe. Although this may be due to cortical reperfusion and late enhancement from the earlier administered intravenous contrast, significant subarachnoid hemorrhage should definitely be considered. Correlate clinically. Neurosurgery consult is recommended. A short-term follow- up CT scan of the head in 6 to 12 hours or an MRI of the brain is needed for further evaluation. -CT head: 02/15/20 later in the day showed No definite interval change - CT head::The findings are suggestive of contrast enhancement causing the increased Gyriform attenuation as described. Although the etiology of acute infarction which are a blood cannot be totally excluded Recommend additional short-term 12 to 18 hour follow-up -CT head 02/18/20:Interval significant decrease in the degree of gyral increased attenuation in the right frontal, temporal and parietal lobe, as described above. Continued close follow-up is recommended. -Neurosurgery consult appreciated Problems reviewed: Yes Code(s): S06.5X9A - TRAUM SUBDR HEM W LOC OF UNSP DURATION, INIT (4) Pulmonary embolus Assessment/Plan: -U/S BLLE doppler:02/15/20:Left lower extremity demonstrates occlusive thrombus in the distal superficial femoral vein, and popliteal vein. The left calf veins are patent. The right lower extremity demonstrates that the common and superficial femoral and popliteal veins are patent and demonstrate good compressibility. The calf veins are patent. There is no Kwok's cyst. -CT Chest :02/15/20:Filling defect within the right lower lobe segmental pulmonary artery that appears to be caused by a pulmonary embolus. -Change heparin drip to lovenox -Started on warfarin -Monitor daily INR -D/C heparin drip once INR>2.0 -Hematology consult appreciated -Pulmonary consult -Echo:02/15/20:LVEF 55-60%, RV mildly dilated, LA mildly dilated, mild mitral regurg, mild to moderate mitral annular calcification, RVSP elevated at 30-40 mm Hg, moderate TR, mild aortic sclerosis Problems reviewed: Yes Code(s): I26.99 - OTHER PULMONARY EMBOLISM WITHOUT ACUTE COR PULMONALE Qualifiers: Pulmonary embolism type: single subsegmental (without acute cor pulmonale) Qualified Code(s): I26.93 - Single subsegmental pulmonary embolism without acute cor pulmonale Assessment/Plan See problem list COVID 19 PCR pending in preparation of dc
[2020-02-20] MEDS ORDERED: WARFARIN NA 10 MG TABLET PO ONE (18:00)
[2020-02-20] MEDS ORDERED: PT OWN MED DRAWER 7, Y5N ONE ×2 (18:57→21:52)
[2020-02-20] MEDS: ATORVASTATIN CA 40 MG TABLET (FP) PEG SCH (21:49)
[2020-02-20] MEDS: LATANOPROST 0.005% OPHTH SOLN 2.5ML BOTTLE OU SCH (21:49)
[2020-02-20] MEDS: hydrOXYzine PAMOATE 25 MG CAPSULE (FP) PO PRN (21:53)
[2020-02-21] MEDS: ACETAMINOPHEN 500 MG TABLET (FP) PEG PRN ×2 (01:03→12:18)
[2020-02-21] MEDS: dilTIAZem HCL 60 MG TABLET PEG SCH ×4 (01:03→18:57)
[2020-02-21] MEDS: metFORMIN HCL 500 MG TABLET (FP) PEG SCH ×2 (06:11→17:00)
[2020-02-21] MEDS: INSULIN SLIDING SCALE (NOVOLOG) 1 VIAL SQ SCH ×3 (06:56→17:00)
--- NOTE | 2020-02-21 07:12 | PN ---
Progress Note, Physician History of Present Illness: PULMONARY AWAKE,NO DISTRESS,-SOB - Current Medication List Current Medications: Active Medications Acetaminophen (Tylenol -) 1,000 mg PEG TID PRN PRN Reason: PAIN 1-3 Last Admin: 02/21/20 01:03 Dose: 1,000 mg Documented by: Atorvastatin Calcium (Lipitor -) 40 mg PEG HS [facility] Last Admin: 02/20/20 21:49 Dose: 40 mg Documented by: Diltiazem HCl (Cardizem -) 60 mg PEG Q6HPO [facility] Last Admin: 02/21/20 06:56 Dose: Not Given Documented by: Enoxaparin Sodium (Lovenox -) 70 mg SQ BID [facility] Last Admin: 02/20/20 21:49 Dose: 70 mg Documented by: Hydroxyzine Pamoate (Vistaril -) 25 mg PO Q6H PRN PRN Reason: FOR ITCHING Last Admin: 02/20/20 21:53 Dose: 25 mg Documented by: Insulin Aspart (Novolog Vial Sliding Scale -) 1 vial SQ [facility]; Protocol Last Admin: 02/21/20 06:56 Dose: Not Given Documented by: Ipratropium [place] (Atrovent 0.02% Nebulizer -) 1 amp NEB Q6H PRN PRN Reason: ASTHMA Latanoprost (Xalatan 0.005% Eye Drops -) 1 drop OU [facility] Last Admin: 02/20/20 21:49 Dose: 1 drop Documented by: Lisinopril (Prinivil) 10 mg PEG DAILY [facility] Last Admin: 02/20/20 09:53 Dose: 10 mg Documented by: Metformin HCl (Glucophage -) 500 mg PEG BID@0700,1630 [facility] Last Admin: 02/21/20 06:11 Dose: 500 mg Documented by: Metoprolol Tartrate (Lopressor Injection -) 5 mg IVPUSH Q4H PRN PRN Reason: TACHYCARDIA Metoprolol Tartrate (Lopressor -) 100 mg PEG BID [facility] Last Admin: 02/20/20 21:54 Dose: 100 mg Documented by: Saliva Substitute (Mouthkote Solution) 1 applic MM Q6H PRN PRN Reason: <Dry mouth> Warfarin Sodium (Coumadin -) 5 mg PEG DAILY@1800 [facility] - Objective Vital Signs: Vital Signs Temperature 98.3 F 02/21/20 06:00 Pulse Rate 123 H 11/05/20 06:00 Respiratory Rate 18 02/21/20 06:00 Blood Pressure 95/52 L 02/21/20 06:00 O2 Sat by Pulse Oximetry (%) 99 02/21/20 00:50 Constitutional: Yes: Well Nourished, Calm Eyes: Yes: WNL HENT: Yes: WNL Neck: Yes: WNL Cardiovascular: Yes: Regular Rate and Rhythm, S1, S2 Respiratory: Yes: Diminished Gastrointestinal: Yes: Normal Bowel Sounds, Soft Extremities: Yes: WNL Edema: No Labs: CBC, BMP Assessment/Plan IMP Subacute-chronic CVA RLL segmental PE Multi-vessel CAD CABG GERD HLD HTN pAFib (was on warafarin but stopped years prior) Recent CVA(~6weeks prior at [place], with residual Left-sided droop, LUE, LLE weakness; sp mechanical thrombectomy) Glycemic control Monitor off ABX Enteral feeds DC [facility] AC DR BLANCHARD
[2020-02-21] MEDS: ENOXAPARIN NA (PORCINE) 80 MG/0.8 ML DISP.SYRIN SQ SCH (09:20)
[2020-02-21] MEDS: LISINOPRIL 10 MG TABLET PEG SCH (09:21)
[2020-02-21] MEDS: METOPROLOL TARTRATE 50 MG TABLET (FP) PEG SCH (09:21)
[2020-02-21] MEDS ORDERED: METOPROLOL TARTRATE 50 MG TABLET (FP) PEG SCH (10:56)
--- NOTE | 2020-02-21 10:56 | DS ---
Physical Examination Vital Signs: Vital Signs Temperature 98.1 F 02/21/20 08:33 Pulse Rate 124 H 02/21/20 08:33 Respiratory Rate 20 02/21/20 08:33 Blood Pressure 118/76 02/21/20 08:33 O2 Sat by Pulse Oximetry (%) 99 02/21/20 08:33 Findings/Remarks: 85F w/ pmh of HFpEF, multi-vessel CAD + CABG, GERD, HLD, HTN, pAF (was on warfarin but stopped years prior), recent CVA (~6weeks prior at [facility], with residual Left-sided droop, LUE, LLE weakness; s/p mechanical thrombectomy); brought in from [facility] due to concern of labored breathing with desaturation to 87% on RA then tachycardia to 130s. Upon arrival in the ED, pt was found to be tachy ~140s. CTA chest showed RLL subsegmental PE. She was started on heparin gtt. 5 hours later, she was found to be altered with "L sided facial droop" although, per daughter, pt reportedly had persistent facial since prior CVA [address] head showed possible SAH. Neurosurgery was consulted who evaluated head CT imaging; most likely subacute -chronic R hemispheric infarct w/ cortical-subcortical gyriform hyperdensity (reperfusion related hyperdensity), though underlying acute infarct cannot be ruled out; additionally, hyperdensity is unlikely acute bleed. Repeat CT head showed no worsening of SAH Currently awake and alert, orient to place, diagnosis, name and president (1) Afib Assessment/Plan: -warfarin 10 mg once today -Warfarin 5 mg po daily otherwise -Daily INR while in the hospital -[facility] until therapeutic Problems reviewed: Yes Code(s): I48.91 - UNSPECIFIED ATRIAL FIBRILLATION (2) CVA (cerebral vascular accident) Problems reviewed: Yes Code(s): I63.9 - CEREBRAL INFARCTION, UNSPECIFIED (3) Subdural hematoma Assessment/Plan: -CT head:02/15/20:There is suggestion of a superimposed acute/subacute right middle cerebral artery infarct with edema and effacement of the cortical sulci. Cortical versus sulcal increased attenuation along the lateral margin of the right frontal, temporal and parietal lobe. Although this may be due to cortical reperfusion and late enhancement from the earlier administered intravenous contrast, significant subarachnoid hemorrhage should definitely be considered. Correlate clinically. Neurosurgery consult is recommended. A short-term follow- up CT scan of the head in 6 to 12 hours or an MRI of the brain is needed for further evaluation. -CT head: 02/15/20 later in the day showed No definite interval change -CT head::The findings are suggestive of contrast enhancement causing the increased Gyriform attenuation as described. Although the etiology of acute infarction which are a blood cannot be totally excluded Recommend additional short-term 12 to 18 hour follow-up -CT head 02/18/20:Interval significant decrease in the degree of gyral increased attenuation in the right frontal, temporal and parietal lobe, as described above. Continued close follow-up is recommended. -Neurosurgery consult appreciated Problems reviewed: Yes Code(s): S06.5X9A - TRAUM SUBDR HEM W LOC OF UNSP DURATION, INIT (4) Pulmonary embolus Assessment/Plan: -U/S BLLE doppler:02/15/20:Left lower extremity demonstrates occlusive thrombus in the distal superficial femoral vein, and popliteal vein. The left calf veins are patent. The right lower extremity demonstrates that the common and superficial femoral and popliteal veins are patent and demonstrate good compressibility. The calf veins are patent. There is no Kwok's cyst. -CT Chest :02/15/20:Filling defect within the right lower lobe segmental pulmonary artery that appears to be caused by a pulmonary embolus. -Change heparin drip to lovenox -Started on warfarin -Monitor daily INR -D/C heparin drip once INR>2.0 -Hematology consult appreciated -Pulmonary consult -Echo:02/15/20:LVEF 55-60%, RV mildly dilated, LA mildly dilated, mild mitral regurg, mild to moderate mitral annular calcification, RVSP elevated at 30-40 mm Hg, moderate TR, mild aortic sclerosis Problems reviewed: Yes Code(s): I26.99 - OTHER PULMONARY EMBOLISM WITHOUT ACUTE COR PULMONALE Qualifiers: Pulmonary embolism type: single subsegmental (without acute cor pulmonale) Qualified Code(s): I26.93 - Single subsegmental pulmonary embolism without acute cor pulmonale Assessment/Plan See problem list COVID 19 PCR pending in preparation of dc Labs: CBC, BMP 02/20/20 06:20 02/20/20 06:20 Discharge Summary Problems reviewed: Yes Reason For Visit: HYPOXIA,PULMONARY EMBOLISM,NEW ONSET CHF Current Active Problems Afib (Acute) CVA (cerebral vascular accident) (Acute) DVT (deep venous thrombosis) (Acute) Hypoxic (Acute) New onset of congestive heart failure (Acute) Pulmonary embolus (Acute) Subdural hematoma (Acute) Condition: Guarded - Instructions Referrals: ON STAFF,NOT [Primary Care Provider] - Sd Mccabe MD [Staff Physician] - Vitaly Panda MD [Staff Physician] - Leslie Case MD [Staff Physician] - - Home Medications Comprehensive Discharge Medication List: Ambulatory Orders Acetaminophen [Tylenol -] 1,000 mg PEG TID PRN 02/15/20 Aspirin [Justin Chewable] 81 mg PEG DAILY 02/15/20 Atorvastatin Ca [Lipitor] 40 mg PEG HS 02/15/20 Diltiazem [Cardizem -] 60 mg PEG QID 02/15/20 Diphenhydramine [Benadryl Oral Solution -] 25 mg PEG Q6H 02/15/20 Furosemide 40 mg PEG BID PRN 02/15/20 Gabapentin 100 mg PEG HS 02/15/20 Insulin Glargine,Hum.rec.anlog [Basaglar Kwikpen U-100] 10 unit SQ HS 02/15/20 Insulin Lispro [Admelog Solostar] 3 unit SQ AM 02/15/20 Ipratropium 0.02% Nebulizer [Atrovent] 1 neb NEB Q6H PRN 02/15/20 Latanoprost 0.005% Eye Drops [Xalatan 0.005% Eye Drops -] 1 drop OU HS 02/15/20 Lisinopril 10 mg PEG DAILY 02/15/20 Meclizine HCl 12.5 mg PEG BID PRN 02/15/20 Metoprolol Tartrate 100 mg PEG BID 02/15/20 Multivitamin [Multiple Vitamins] 1 each PEG DAILY 02/15/20 Polyethylene Glycol 3350 [Glycolax] 17 gm PEG BID PRN 02/15/20 Saliva Substitute Comb. No.12 [Oral Relief Dry Mouth] 30 ml MM Q6H PRN 02/15/20 Sennosides 8.6 mg PEG HS PRN 02/15/20 predniSONE [Deltasone -] 40 mg PEG DAILY PRN 02/15/20
[2020-02-21 11:51] LABS: INR 2.56 (0.83-1.09); PROTHROMBIN TIME (PATIENT) 30.6 SEC (9.7-13.0)
[2020-02-21 11:57] LABS: POTASSIUM 4.2 mmol/L (3.5-5.1)
[2020-02-21 12:01] LABS: ALBUMIN 2.5 g/dl (3.4-5.0)
[2020-02-21 12:02] LABS: CALCIUM 9.1 mg/dL (8.5-10.1)
[2020-02-21 12:04] LABS: CREATININE 0.7 mg/dL (0.55-1.3)
[2020-02-21 12:06] LABS: BILIRUBIN,TOTAL 0.4 mg/dL (0.2-1); TOT PROT 5.8 g/dl (6.4-8.2)
[2020-02-21 12:08] LABS: HEMATOCRIT 34.6 % (32.4-45.2); MCHC 31.8 g/dl (32.0-36.0); MEAN CELL VOLUME 97.5 fl (80-96); MEAN PLT VOLUME 9.7 fl (7.5-11.1); PLATELET COUNT 255 K/MM3 (134-434); RBC 3.55 M/mm3 (3.60-5.2); RDW 16.5 % (11.6-15.6); WHITE BLOOD COUNT 9.3 K/mm3 (4.0-10.0)
[2020-02-21] MEDS ORDERED: WARFARIN NA 5 MG TABLET PEG SCH (18:00)
[2020-02-21] MEDS ORDERED: PT OWN MED DRAWER 7, Y5N ONE (18:51)
[2020-02-21] MEDS: hydrOXYzine PAMOATE 25 MG CAPSULE (FP) PO PRN (18:56)
[2020-02-21 18:58] VITALS: BP 110/55; PULSE 98; TEMP 98
== END 2020-02-21 20:50 | DRG 64 ==
LOC: JER 03:53 → JERBED 09:41 → JICU 15:45 → J4S 02-18 14:49
PROVIDERS: ADMIT Family Medicine; ATTEND Family Medicine
DX: I62.00 Nontraumatic subdural hemorrhage, unspecified (principal); I26.99 Other pulmonary embolism without acute cor pulmonale; I63.9 Cerebral infarction, unspecified; G93.6 Cerebral edema; I69.354 Hemiplegia and hemiparesis following cerebral infarction affecting left non-dominant side; I82.409 Acute embolism and thrombosis of unspecified deep veins of unspecified lower extremity; I48.91 Unspecified atrial fibrillation; I25.10 Atherosclerotic heart disease of native coronary artery without angina pectoris; Z95.1 Presence of aortocoronary bypass graft; K21.9 Gastro-esophageal reflux disease without esophagitis; E78.5 Hyperlipidemia, unspecified; I10 Essential (primary) hypertension; I48.0 Paroxysmal atrial fibrillation; R00.0 Tachycardia, unspecified; D72.829 Elevated white blood cell count, unspecified
CPT/HCPCS: 36415; 70450-TC; 71045-TC-FY; 71275-TC; 80048; 80053; 80061; 81003; 82550; 82962; 83036; 83605; 83721; 83735; 83880; 84100; 84484; 85025; 85027; 85610; 85730; 87040; 87086; 90670; 93005; 93010; 93306-TC; 93970-TC; 99285-25; C9803; J1644; Q2036; Q9967; U0003

== ENCOUNTER 2020-05-18 21:16 | Inpatient (IN) | payer OTHER ==
[2020-05-18 22:15] LABS: BASO % 0.9 % (0-2.0); EOS % 0.5 % (0-4.5); HEMATOCRIT 42.1 % (32.4-45.2); LYMPH % 18.4 % (8-40); MCH 31.1 pg (25.7-33.7); MCHC 33.1 g/dl (32.0-36.0); MEAN CELL VOLUME 93.9 fl (80-96); MEAN PLT VOLUME 10.2 fl (7.5-11.1); MONO % 10.5 % (3.8-10.2); NEUT % 69.7 % (42.8-82.8); PLATELET COUNT 298 K/MM3 (134-434); RBC 4.48 M/mm3 (3.60-5.2); RDW 16.8 % (11.6-15.6); WHITE BLOOD COUNT 10.8 K/mm3 (4.0-10.0)
[2020-05-18 22:37] LABS: POTASSIUM 3.6 mmol/L (3.5-5.1)
[2020-05-18 22:39] LABS: CALCIUM 9.6 mg/dL (8.5-10.1)
[2020-05-18] MEDS ORDERED: SODIUM CHLORIDE 0.9% 500 ML INFUS.BAG IV ONE (22:46)
[2020-05-19] MEDS ORDERED: SILVER SULFADIAZINE 1% TOP CREAM 50 GM JAR TP ONE ×2 (01:44→02:01)
[2020-05-19] MEDS ORDERED: morphine CARPU-JECT 2 MG/1 ML DISP.SYRIN IVPUSH ONE (01:52)
[2020-05-19] MEDS ORDERED: MORPHINE SULFATE 2 MG/ML VIAL ONE (01:52)
[2020-05-19 05:31] LABS: BASO % 0.7 % (0-2.0); EOS % 0.6 % (0-4.5); HEMATOCRIT 42.1 % (32.4-45.2); HEMOGLOBIN 14.1 GM/dL (10.7-15.3); LYMPH % 13.1 % (8-40); MCH 31.5 pg (25.7-33.7); MCHC 33.4 g/dl (32.0-36.0); MEAN CELL VOLUME 94.3 fl (80-96); MEAN PLT VOLUME 10.2 fl (7.5-11.1); MONO % 8.2 % (3.8-10.2); NEUT % 77.4 % (42.8-82.8); PLATELET COUNT 293 K/MM3 (134-434); RBC 4.47 M/mm3 (3.60-5.2); RDW 16.6 % (11.6-15.6); WHITE BLOOD COUNT 12.9 K/mm3 (4.0-10.0)
[2020-05-19 05:49] LABS: POTASSIUM 3.6 mmol/L (3.5-5.1)
[2020-05-19 05:51] LABS: CALCIUM 9.6 mg/dL (8.5-10.1)
[2020-05-19 05:52] LABS: BLOOD UREA NITROGEN 39.8 mg/dL (7-18)
[2020-05-19 05:55] LABS: BILIRUBIN,TOTAL 0.6 mg/dL (0.2-1); TOT PROT 6.8 g/dl (6.4-8.2)
[2020-05-19] MEDS ORDERED: ENOXAPARIN NA (PORCINE) 40 MG/0.4 ML DISP.SYRIN SQ ONE (10:35)
[2020-05-19] MEDS: ENOXAPARIN NA (PORCINE) 40 MG/0.4 ML DISP.SYRIN SQ SCH (10:36)
[2020-05-19] MEDS ORDERED: AMINO ACIDS 4.25%/D5W 1,000 ML IV SCH (15:00)
[2020-05-20] MEDS: ENOXAPARIN NA (PORCINE) 40 MG/0.4 ML DISP.SYRIN SQ SCH (10:15)
[2020-05-20 11:03] LABS: BASO % 0.9 % (0-2.0); HEMATOCRIT 41.1 % (32.4-45.2); HEMOGLOBIN 13.4 GM/dL (10.7-15.3); LYMPH % 16.7 % (8-40); MCH 31.1 pg (25.7-33.7); MCHC 32.7 g/dl (32.0-36.0); MEAN CELL VOLUME 94.9 fl (80-96); NEUT % 72.4 % (42.8-82.8); PLATELET COUNT 307 K/MM3 (134-434); RBC 4.33 M/mm3 (3.60-5.2); RDW 16.8 % (11.6-15.6); WHITE BLOOD COUNT 11.3 K/mm3 (4.0-10.0)
[2020-05-20 11:14] LABS: POTASSIUM 3.4 mmol/L (3.5-5.1)
[2020-05-20 11:19] LABS: CALCIUM 9.7 mg/dL (8.5-10.1)
[2020-05-20 11:20] LABS: ALBUMIN 2.9 g/dl (3.4-5.0); BLOOD UREA NITROGEN 47.3 mg/dL (7-18)
[2020-05-20 11:23] LABS: BILIRUBIN,TOTAL 1.2 mg/dL (0.2-1)
[2020-05-20] MEDS ORDERED: METOPROLOL TARTRATE 5 MG/5 ML VIAL IVPB PRN (12:11)
[2020-05-20] MEDS ORDERED: ACETAMINOPHEN 650 MG/20.3 ML ORAL SOLUTION (CUPS) PO PRN (13:35)
[2020-05-20] MEDS ORDERED: METOPROLOL TARTRATE 25 MG TABLET (FP) PO SCH (13:45)
[2020-05-20] MEDS ORDERED: METOPROLOL TARTRATE 25 MG TABLET (FP) GT SCH (14:04)
[2020-05-20] MEDS ORDERED: PT OWN MED DRAWER 7, Y5N ONE ×2 (14:33→22:46)
[2020-05-20] MEDS: POTASSIUM CHLORIDE 20 MEQ in AMINO ACIDS 4.25%/D5W 1,000 ML IV SCH ×2 (14:35→16:59)
[2020-05-20] MEDS: dilTIAZem HCL 60 MG TABLET PEG SCH ×3 (14:59→23:02)
[2020-05-20] MEDS: NYSTATIN POWDER 100,000 UNITS/GM - 15 GM TOPICAL POWDER TP SCH (14:59)
[2020-05-20] MEDS: APIXABAN 2.5 MG TABLET PO SCH ×2 (15:00→23:02)
[2020-05-20] MEDS ORDERED: MIRTAZAPINE 15 MG TABLET (FP) PO SCH (22:00)
[2020-05-20] MEDS ORDERED: ATORVASTATIN CA 40 MG TABLET (FP) PEG SCH (22:00)
[2020-05-20] MEDS ORDERED: LATANOPROST 0.005% OPHTH SOLN 2.5ML BOTTLE OU SCH (22:00)
[2020-05-20] MEDS: METOPROLOL TARTRATE 25 MG TABLET (FP) PEG SCH (23:02)
[2020-05-20 23:11] VITALS: BMI 22.8
[2020-05-21] MEDS ORDERED: PT OWN MED DRAWER 7, Y5N ONE (09:50)
[2020-05-21] MEDS: METOPROLOL TARTRATE 25 MG TABLET (FP) PEG SCH (09:54)
[2020-05-21] MEDS: APIXABAN 2.5 MG TABLET PO SCH (09:54)
[2020-05-21] MEDS: dilTIAZem HCL 60 MG TABLET PEG SCH ×2 (09:54→14:09)
[2020-05-21] MEDS: NYSTATIN POWDER 100,000 UNITS/GM - 15 GM TOPICAL POWDER TP SCH (09:55)
[2020-05-21] MEDS ORDERED: LISINOPRIL 10 MG TABLET PEG SCH (10:00)
[2020-05-21 14:41] VITALS: BP 123/76; PULSE 85; TEMP 98.2
== END 2020-05-21 15:31 | DRG 920 ==
LOC: JER 21:16 → JERBED 21:45 → J6S 05-19 22:58
PROVIDERS: ADMIT Family Medicine; ATTEND Family Medicine
PROC: 0D20XUZ Change Feeding Device in Upper Intestinal Tract, External Approach (ICD-10-PCS; principal; 2020-05-20)
DX: T85.528A Displacement of other gastrointestinal prosthetic devices, implants and grafts, initial encounter (principal); G81.94 Hemiplegia, unspecified affecting left nondominant side; I50.32 Chronic diastolic (congestive) heart failure; Y83.8 Other surgical procedures as the cause of abnormal reaction of the patient, or of later complication, without mention of misadventure at the time of the procedure; F03.90 Unspecified dementia, unspecified severity, without behavioral disturbance, psychotic disturbance, mood disturbance, and anxiety; E11.9 Type 2 diabetes mellitus without complications; I25.10 Atherosclerotic heart disease of native coronary artery without angina pectoris; I11.0 Hypertensive heart disease with heart failure; I48.91 Unspecified atrial fibrillation; K21.9 Gastro-esophageal reflux disease without esophagitis; F41.8 Other specified anxiety disorders; Z95.1 Presence of aortocoronary bypass graft; Z20.822 Contact with and (suspected) exposure to COVID-19
CPT/HCPCS: 36415; 49450; 71045-TC-FY; 74019-TC-FY; 80048; 80053; 82962; 85025; 86850; 86900; 86901; 93005; 93010; 99285-25; C9803; U0003